=== PATIENT | female | born 1955 | race Caucasian/White ===

== ENCOUNTER 2018-05-06 05:34 | Outpatient (CLI) | payer BC ==
[~2018-05-06] VITALS: Ht 175.3 cm; Wt 95.3 kg
[2018-05-06] MEDS ORDERED: ALPR0.5T7 PO (13:23)
[2018-05-06] MEDS ORDERED: MTH/1CAP2 PO (13:23)
== END 2018-05-06 13:25 | disposition home or self-care (01) ==
LOC: PREOP 05:34
PROVIDERS: ATTEND Surgery
DX: Z01.818 Encounter for other preprocedural examination (principal)

== ENCOUNTER 2018-05-13 07:20 | Day surgery (SDC) | payer BC ==
[~2018-05-13] VITALS: Ht 175.3 cm; Wt 95.3 kg
[~2018-05-13 07:20] MED LIST: ALPR0.5T7 PO; MTH/1CAP2 PO
[2018-05-13] MEDS ORDERED: NS IV 500 ML 500 ML ONE (07:25)
--- OUTSIDE RECORDS SUMMARY | 2018-05-13 07:25 | XMS REPORT ---
Author Author [facility] Medical Staff Organization [facility] Address [address] [id number] Phone [phone] Care Team Providers Care Assistant Professor Of Art Name Role Phone WHITLEY NIELSEN, JACY PP [phone] JACY ARREAGA MD, PP [phone] Summary purpose TRANSITION OF CARE AUTO GENERATION Chief Complaint and Reason for Visit No authorized Reason for Visit (Admitting Diagnosis) is available for this visit. Problem list No authorized problems tracked for continuity of care are available for this visit. Encounters No authorized problems tracked for encounter diagnoses are available for this visit. Medications No medications recorded for this patient visit Allergies, adverse reactions, alerts Allergen Category Ingredient Status Reaction Severity Onset No Known Drug Allergy No known drug allergies No known drug allergies Confirmed or Verified Immunizations No immunizations recorded for this patient visit Relevant diagnostic tests and/or laboratory data No authorized results are available for this patient visit History of procedures No procedures recorded for this patient visit. Functional status No functional or cognitive status observations are available for this visit. Vital signs No authorized vital signs are available for this visit. Social history No Social History or smoking status observations were recorded for this visit. ( Unknown if ever smoked.) Treatment Plan No treatment plan text is available for this visit. Hospital discharge instructions No discharge instruction text is available for this visit.
--- OUTSIDE RECORDS SUMMARY | 2018-05-13 07:25 | XMS REPORT ---
Author Author [facility] Medical Staff Organization [facility] Address [address] [id number] Phone [phone] Summary purpose TRANSITION OF CARE AUTO GENERATION [...]
--- OUTSIDE RECORDS SUMMARY | 2018-05-13 07:25 | XMS REPORT ---
Author Author [facility] Ayi Laile [facility] Medical Staff Organization [facility] Address [address] [place] [id number] Phone [phone] Summary purpose TRANSITION OF CARE AUTO GENERATION [...] visit Relevant diagnostic tests and/or laboratory data RESULTS Radiology Results [id number] MRI T-SPINE W/O CONT PACs Image DATE OF EXAM: Nov 11 2015 MRI 0150-MRI T SPINE WO CONTRAST : RADIOLOGY REPORT DATE OF SERVICE: 11/11/15 HISTORY: Patient has mid back pain x3 months getting worse. MRI THORACIC SPINE WITHOUT CONTRAST 1344 HOURS Multiplanar multisequence study was performed. Vertebral bodies align normally except for mild 2 mm anterolisthesis of T2 on T3 which is likely degenerative. Signal intensity in vertebrae is normal with the exception of a few vertebrae having increased signal areas on both T1 and T2 weighted sequences compatible with benign hemangiomas. The interspaces are maintained. The intervertebral discs fail to show any disc protrusion or bulging. There is no spinal canal stenosis and the neural foramina are patent. Spinal cord has normal signal and appearance. IMPRESSION: Minimal degenerative anterolisthesis of T2 on T3. The study is otherwise negative for any significant findings. DO RAMEZ Briggs/ty 11/11/2015 14:10: / 11/11/2015 14:40:51 cc:Taylor Cash PA-C This document has been electronically Signed by: On: DATE OF EXAM: Nov 11 2015 MRI 0150-MRI T SPINE WO CONTRAST : RADIOLOGY REPORT DATE OF SERVICE: 11/11/15 HISTORY: Patient has mid back pain x3 months getting worse. MRI THORACIC SPINE WITHOUT CONTRAST 1344 HOURS Multiplanar multisequence study was performed. Vertebral bodies align normally except for mild 2 mm anterolisthesis of T2 on T3 which is likely degenerative. Signal intensity in vertebrae is normal with the exception of a few vertebrae having increased signal areas on both T1 and T2 weighted sequences compatible with benign hemangiomas. The interspaces are maintained. The intervertebral discs fail to show any disc protrusion or bulging. There is no spinal canal stenosis and the neural foramina are patent. Spinal cord has normal signal and appearance. IMPRESSION: Minimal degenerative anterolisthesis of T2 on T3. The study is otherwise negative for any significant findings. Shabana Collins DO /ty 11/11/2015 14:10:00 / 11/11/2015 14:40:51 cc:Taylor Cash PA-C This document has been electronically Signed by: SHABANA COLLINS DO On: Nov 11 20153:35P Result Amended on 2015-11-11 at 15:35:38. Previous status was [place]. History of procedures No procedures recorded for [...]
--- OUTSIDE RECORDS SUMMARY | 2018-05-13 07:25 | XMS REPORT ---
Author Author [facility] Medical Staff Organization [facility] Address [address] [place] [id number] Phone [phone] Summary purpose TRANSITION OF CARE AUTO GENERATION [...] tests and/or laboratory data RESULTS Radiology Results [id number] RIB XRAYS - UNILAT 3 VIEW PACs Image DATE OF EXAM: 2015 RAD 1308-RIB [id number] VIEW- RIGHT: RADIOLOGY REPORT DATE OF SERVICE: 10/18/15 HISTORY: Right upper back and right rib pain for 3 weeks RIGHT RIBS 3 VIEWS 1645 HOURS The ribs appear intact. No fractures are noted. There is no pneumothorax or pleural effusion. IMPRESSION: Negative right ribs. MD OCTAVIA Da Silva/ky10/19/2015 08:27:00 / 10/19/2015 08:51:18 cc:Al Cash PA-C This document has been electronically Signed by: On: DATE OF EXAM: 2015 RAD 1308-RIB [id number] VIEW- RIGHT: RADIOLOGY REPORT DATE OF SERVICE: 10/18/15 HISTORY: Right upper back and right rib pain for 3 weeks RIGHT RIBS 3 VIEWS 1645 HOURS The ribs appear intact. No fractures are noted. There is no pneumothorax or pleural effusion. IMPRESSION: Negative right ribs. MD OCTAVIA Da Silva/ty10/19/2015 08:27:00 / 10/19/2015 08:51:18 cc:Al Cash PA-C This document has been electronically Signed by: PETER SIERRA MD On: :P Result Amended on 2015-10-19 at 13:01:32. Previous status was [place]. Thoracic Spine - 3 View PACs Image DATE OF EXAM: 2015 RAD 0425-THORACIC SPINE-3 VIEW : RADIOLOGY REPORT DATE OF SERVICE: 10/18/15 HISTORY: Upper back pain for 3 weeks THORACIC SPINE 3 VIEWS 1645 HOURS There is mild wedging of several midthoracic vertebra, probably T6 and T7. There are diffuse degenerative changes with disc narrowing. Marginal osteophytes are present at multiple levels. The paraspinous soft tissues are normal. IMPRESSION: Diffuse degenerative thoracic disc changes. Mild chronic wedging of mid thoracic vertebra. MD OCTAVIA Da Silva/ty10/19/2015 08:23: / 10/19/2015 08:50:17 cc:Al Cash PA-C This document has been electronically Signed by: On: DATE OF EXAM: 2015 RAD 0425-THORACIC SPINE-3 VIEW : RADIOLOGY REPORT DATE OF SERVICE: 10/18/15 HISTORY: Upper back pain for 3 weeks THORACIC SPINE 3 VIEWS 1645 HOURS There is mild wedging of several midthoracic vertebra, probably T6 and T7. There are diffuse degenerative changes with disc narrowing. Marginal osteophytes are present at multiple levels. The paraspinous soft tissues are normal. IMPRESSION: Diffuse degenerative thoracic disc changes. Mild chronic wedging of mid thoracic vertebra. MD OCTAVIA Da Silva/ty10/19/2015 08:23: / 10/19/2015 08:50:17 cc:Al Cash PA-C This document has been electronically Signed by: PETER SIERRA MD On: :P Result Amended on 2015-10-19 at 13:01:30. Previous status was [place]. History of procedures Procedure Code Code Type Description Date Performed Performing Physician 45653 CPT-4 X-RAY EXAM OF THORACIC SPINE 10-18-2015 AL CASH 87005 CPT-4 X-RAY EXAM OF RIBS/CHEST 10-18-2015 AL CASH Functional status No functional or cognitive status [...]
--- OUTSIDE RECORDS SUMMARY | 2018-05-13 07:25 | XMS REPORT ---
Author Author [facility] Medical Staff Organization [facility] Address [address] [place] [id number] Phone [phone] Summary purpose TRANSITION OF CARE AUTO GENERATION [...] tests and/or laboratory data RESULTS Radiology Results [id number] MRI T-SPINE W/O CONT PACs Image DATE [...] RAMEZ Briggs/ty 11/11/2015 14:10: / 11/11/2015 14:40:51 cc:Al Cash PA-C This document has been [...] DO /ty 11/11/2015 14:10:00 / 11/11/2015 14:40:51 cc:Al Cash PA-C This document has been electronically Signed by: SHABANA COLLINS DO On: Nov 11 20153:35P Result Amended on 2015-11-11 at 15:35:38. Previous status was [place]. History of procedures Procedure Code Code Type Description Date Performed Performing Physician 36114 CPT-4 MRI CHEST SPINE W/O DYE 11-11-2015 AL CASH Functional status No functional or [...]
--- OUTSIDE RECORDS SUMMARY | 2018-05-13 07:25 | XMS REPORT ---
Author Author [facility] Medical Staff Organization [facility] Address [address] [id number] Phone [phone] Care Team Providers Care Bible Reader Name Role Phone WHITLEY NIELSEN, JACY PP [phone] JACY ARREAGA MD, PP [phone] Summary purpose TRANSITION OF CARE AUTO GENERATION Chief Complaint and Reason for Visit Admit Diagnosis 1 OT SCREEN MAMMOGRAM Problem list No authorized problems tracked for [...] tests and/or laboratory data RESULTS Radiology Results [id number] Bilateral Screen Digital Mammo PACs Image DATE OF EXAM: Mar 12 2015 [facility] 0845-BILAT SCREEN DIG MAMMO : RADIOLOGY REPORT DATE OF SERVICE:03/12/15 HISTORY: Screening for possible malignant neoplasm BILATERAL SCREENING DIGITAL MAMMOGRAPHY WITH iCAD SecondLook 7.2 - H+ 1530 HOURS Breast parenchyma shows scattered fibroglandular density.No mass, grouped calculi or architectural distortion is seen. IMPRESSION:ACR BIRADS I - negative study DO RAMEZ Briggs/emily 03/15/2015 18:42:00 / 03/15/2015 22:12:07 cc:Dr. Jacy Arreaga This document has been electronically Signed by: On: DATE OF EXAM: Mar 12 2015 [facility] 0845-BILAT SCREEN DIG MAMMO : RADIOLOGY REPORT DATE OF SERVICE:03/12/15 HISTORY: Screening for possible malignant neoplasm BILATERAL SCREENING DIGITAL MAMMOGRAPHY WITH iCAD SecondLook 7.2 - H+ 1530 HOURS Breast parenchyma shows scattered fibroglandular density.No mass, grouped calculi or architectural distortion is seen. IMPRESSION:ACR BIRADS I - negative study DO RAMEZ Briggs/pb 03/15/2015 18:42:00 / 03/15/2015 22:12:07 cc:Dr. Jacy Arreaga This document has been electronically Signed by: SHABANA COLLINS DO On: Mar 16 20153:59P Result Amended on 2015-03-16 at 15:59:45. Previous status was [place]. History of procedures Procedure Code Code Type Description Date Performed Performing Physician 97367 CPT-4 MAMMOGRAM, SCREENING 03-12-2015 JACY ARREAGA 12801 CPT-4 COMP SCREEN MAMMOGRAM ADD-ON 03-12-2015 JACY ARREAGA Functional status No functional or cognitive status [...]
--- OUTSIDE RECORDS SUMMARY | 2018-05-13 07:26 | XMS REPORT ---
Author Author PETER SAMANIEGO [facility] Address [address] [place], [place] [id number] Care Team Providers Care Mammographer Name Role Phone PETER SAMANIEGO PCP Allergies and Adverse Reactions Name Reaction Notes No known drug allergy Plan of Treatment Planned Activity Comments Planned Date Planned Time Plan/Goal CBC W/ AUTO DIFF (RFLX MAN DIFF IF IND). 09/07/2017 12:00 AM MAMMOGRAPHY BILATERAL DX DIGITAL 04/09/2018 12:00 AM Medications Active Name Start Date Estimated Completion Date SIG Comments prednisone 20 mg oral tablet 08/23/2017 4 x 2 days, 3 x 2 days, 2 x 2 days 1 x 2 days [place] 10-325 mg oral tablet 09/05/2017 take 1 tablet by oral route every 6 hours as needed for pain cyclobenzaprine 10 mg oral tablet 09/05/2017 take 1 tablet (10 mg) by oral route 3 times per day Name Start Date Expiration Date SIG Comments Xanax 0.5 mg oral tablet 10/05/2017 12/04/2017 1/2 to 1 twice daily as needed for anxiety must last 30 days lansoprazole 30 mg oral capsule,delayed release(DR/EC) 02/27/2018 03/29/2018 take 1 capsule (30 mg) by oral route BID for one week the tkae once daily daily before a meal . Problem List Description Status Onset Acute midline low back pain with left-sided sciatica Active 08/22/2017 History of renal calculi Active 08/22/2017 Renal cyst Active 08/22/2017 LOLIS (generalized anxiety disorder) Active 10/06/2017 Vital Signs Date Time BP-Sys(mm[Hg] BP-Skylar(mm[Hg]) HR(bpm) RR(rpm) Temp WT HT HC BMI BSA BMI Percentile O2 Sat(%) 03/01/2018 7:21:00 AM 106 mmHg 72 mmHg 82 bpm 18 rpm 98.1 F 220 lbs 69 in 32.488 kg/m 2.2041 m 98 % 12/12/2017 8:25:00 AM 160 mmHg 90 mmHg 80 bpm 16 rpm 98.1 F 215 lbs 69 in 31.75 kg/m2 2.18 m2 98 % 10/05/2017 1:28:00 PM 124 mmHg 82 mmHg 86 bpm 18 rpm 98.2 F 215 lbs 99 % 09/11/2017 4:15:00 PM 132 mmHg 86 mmHg 98 bpm 18 rpm 99.1 F 219 lbs 70 in 31.4229 kg/m 2.215 m 100 % 08/20/2017 4:32:00 PM 148 mmHg 100 mmHg 106 bpm 18 rpm 98 F 219 lbs 69.5 in 31.88 kg/m2 2.21 m2 98 % Social History Name Description Comments Uses seatbelts Alcohol Current some day Tobacco Never smoker History of Procedures Date Ordered Description Order Status 08/20/2017 12:00 AM MRI LUMBAR SPINE W/O DYE Returned 08/20/2017 12:00 AM THER/PROPH/DIAG INJ SC/IM Reviewed 08/20/2017 12:00 AM Decadron 8mg Injection Reviewed 08/20/2017 12:00 AM Depo-Medrol 80mg Injection Reviewed 08/27/2017 12:00 AM INJECT SPINE LUMBAR/SACRAL Returned 09/07/2017 12:00 AM ASSAY BLOOD CARBON DIOXIDE Reviewed 09/07/2017 12:00 AM ASSAY OF BLOOD CHLORIDE Reviewed 09/07/2017 12:00 AM ASSAY OF SERUM POTASSIUM Reviewed 09/07/2017 12:00 AM ASSAY OF SERUM SODIUM Reviewed 09/07/2017 12:00 AM ASSAY OF UREA NITROGEN Reviewed 09/07/2017 12:00 AM CHEST X-RAY 2VW FRONTAL&LATL Reviewed 09/07/2017 12:00 AM ELECTROCARDIOGRAM TRACING Returned 09/11/2017 12:00 AM THER/PROPH/DIAG INJ SC/IM Reviewed 09/11/2017 12:00 AM Decadron 8mg Injection Reviewed 09/11/2017 12:00 AM Toradol 60 Mg Injection Reviewed 03/01/2018 12:00 AM THER/PROPH/DIAG INJ SC/IM Reviewed 03/01/2018 12:00 AM Decadron 8mg Injection Reviewed 03/01/2018 12:00 AM Depo-Medrol 80mg Injection Reviewed Results Summary Not available. History Of Immunizations Not available. History of Past Illness Name Date of Onset Comments Kidney Stones Acute midline low back pain with left-sided sciatica 08/22/2017 History of renal calculi 08/22/2017 Renal cyst 08/22/2017 LOLIS (generalized anxiety disorder) 10/06/2017 Low back pain Aug 20 2017 4:35PM Lumbago with sciatica, left side Aug 20 2017 4:33PM Pain management Aug 20 2017 4:33PM History of renal calculi Aug 20 2017 4:33PM Bilateral Renal cyst Stable Aug 20 2017 4:33PM Renal calculus, left Aug 20 2017 4:33PM Spondylosis Aug 27 2017 1:50PM Back pain Aug 27 2017 1:50PM Preoperative examination Sep 07 2017 12:30PM Encounter for pre-operative examination Stable Sep 11 2017 4:17PM Mild Chronic LOLIS (generalized anxiety disorder) Stable Oct 05 2017 1:29PM Medication management Oct 05 2017 1:29PM GERD without esophagitis Dec 12 2017 8:28AM LOLIS (generalized anxiety disorder) Dec 12 2017 8:28AM Medication management Dec 12 2017 8:28AM Osteoarthrosis, generalized, multiple sites Mar 01 2018 7:23AM Fatigue, unspecified type Mar 01 2018 7:23AM Seasonal allergies Mar 01 2018 7:23AM Breast cancer screening Apr 09 2018 3:10PM Payers Insurance Name Company Name Plan Name Plan Number Policy Number Policy Group Number [id number] History of Encounters Visit Date Visit Type Provider 03/01/2018 Office visit PETER NICKERSON 12/12/2017 Office visit PETER NICKERSON 10/05/2017 Office visit PETER NICKERSON 09/11/2017 Office visit PETER NICKERSON 08/20/2017 Office visit PETER NICKERSON
--- OUTSIDE RECORDS SUMMARY | 2018-05-13 07:26 | XMS REPORT ---
Author Author PETER SAMANIEGO [facility] Address [address] [place], [place] [phone] Care Team Providers Care Web Content & Social Media Manager Name Role Phone PETER SAMANIEGO PCP Allergies and Adverse Reactions Name Reaction Notes No known drug allergy Plan of Treatment Planned Activity Comments Planned Date Planned Time Plan/Goal CBC W/ AUTO DIFF (RFLX MAN DIFF IF IND). 09/07/2017 12:00 AM Medications Active Name Start Date Estimated Completion Date SIG Comments prednisone 20 mg oral tablet 08/23/2017 4 x 2 days, 3 x 2 days, 2 x 2 days 1 x 2 days [place] 10-325 mg oral tablet 09/05/2017 take 1 tablet by oral route every 6 hours as needed for pain cyclobenzaprine 10 mg oral tablet 09/05/2017 take 1 tablet (10 mg) by oral route 3 times per day Xanax 0.5 mg oral tablet 10/05/2017 12/04/2017 1/2 to 1 twice daily as needed for anxiety must last 30 days Problem List Description Status Onset Acute midline low back pain with left-sided sciatica Active 08/22/2017 History of renal calculi Active 08/22/2017 Renal cyst Active 08/22/2017 LOLIS (generalized anxiety disorder) Active 10/06/2017 Vital Signs Date Time BP-Sys(mm[Hg] BP-Skylar(mm[Hg]) HR(bpm) RR(rpm) Temp WT HT HC BMI BSA BMI Percentile O2 Sat(%) 10/05/2017 1:28:00 PM 124 mmHg 82 mmHg 86 bpm 18 rpm 98.2 F 215 lbs 99 % 09/11/2017 4:15:00 PM 132 mmHg 86 mmHg 98 bpm 18 rpm 99.1 F 219 lbs 70 in 31.42 kg/m2 2.21 m2 100 % 08/20/2017 4:32:00 PM 148 mmHg 100 mmHg 106 bpm 18 rpm 98 F 219 lbs 69.5 in 31.8767 kg/m 2.2071 m 98 % Social History Name Description Comments [...] 12:00 AM Toradol 60 Mg Injection Reviewed Results Summary Not available. History [...] 1:29PM Medication management Oct 05 2017 1:29PM Payers Insurance Name Company Name Plan Name Plan Number Policy Number Policy Group Number [id number] History of Encounters Visit Date Visit Type Provider 10/05/2017 Office visit PETER NICKERSON 09/11/2017 Office visit PETER NICKERSON 08/20/2017 Office visit PETER NICKERSON
--- OUTSIDE RECORDS SUMMARY | 2018-05-13 07:26 | XMS REPORT ---
Author Author PETER SAMANIEGO [facility] Address [address] [place], [place] [phone] Care Team Providers Care Warehouse Order Selector Name Role Phone PETER SAMANIEGO PCP Allergies [...] x 2 days 1 x 2 days [place] 10-325 mg oral tablet 09/05/2017 take 1 tablet by oral route every 6 hours as needed for pain cyclobenzaprine 10 mg oral tablet 09/05/2017 take 1 tablet (10 mg) by oral route 3 times per day lansoprazole 30 mg oral capsule,delayed release(DR/EC) 02/27/2018 03/29/2018 take 1 capsule (30 mg) by oral route BID for one week the tkae once daily daily before a meal . Name Start Date Expiration Date SIG Comments [...] 7:23AM Seasonal allergies Mar 01 2018 7:23AM Payers Insurance Name Company Name Plan Name Plan Number Policy Number Policy Group Number [id number]/A History of Encounters Visit Date Visit Type Provider 03/01/2018 Office visit PETER NICKERSON 12/12/2017 Office visit PETER NICKERSON 10/05/2017 Office visit PETER NICKERSON 09/11/2017 Office visit PETER NICKERSON 08/20/2017 Office visit PETER NICKERSON
--- OUTSIDE RECORDS SUMMARY | 2018-05-13 07:26 | XMS REPORT ---
Author PETER Hernandez [facility] Address [address] [facility] [address] [place], [place] [phone] Care Team Providers Care Project Facilitator Name Role Phone PETER SAMANIEGO PCP Allergies and Adverse Reactions Name Reaction Notes No known drug allergy Plan of Treatment Not available. Medications Active Name Start Date Estimated Completion Date SIG Comments cyclobenzaprine 10 mg oral tablet 08/20/2017 take 1 tablet (10 mg) by oral route 3 times per day Xanax 0.5 mg oral tablet 08/20/2017 09/19/2017 1/2 to 1 twice daily as needed for anxiety must last 30 days prednisone 20 mg oral tablet 08/23/2017 4 x 2 days, 3 x 2 days, 2 x 2 days 1 x 2 days [place] 10-325 mg oral tablet 08/28/2017 take 1-2 tablets by oral route every 4 to 6 hours Problem List Description Status Onset Acute midline low back pain with left-sided sciatica Active 08/22/2017 History of renal calculi Active 08/22/2017 Renal cyst Active 08/22/2017 Vital Signs Date Time BP-Sys(mm[Hg] BP-Skylar(mm[Hg]) HR(bpm) RR(rpm) Temp WT HT HC BMI BSA BMI Percentile O2 Sat(%) 08/20/2017 4:32:00 PM 148 mmHg 100 mmHg [...] 08/20/2017 12:00 AM Depo-Medrol 80mg Injection Reviewed Results Summary Not available. History Of Immunizations Not available. History of Past Illness Name Date of Onset Comments Kidney Stones Acute midline low back pain with left-sided sciatica 08/22/2017 History of renal calculi 08/22/2017 Renal cyst 08/22/2017 Low back pain Aug 20 2017 4:35PM Lumbago with sciatica, left side Aug 20 2017 4:33PM Pain management Aug 20 2017 4:33PM History of renal calculi Aug 20 2017 4:33PM Bilateral Renal cyst Stable Aug 20 2017 4:33PM Renal calculus, left Aug 20 2017 4:33PM Spondylosis Aug 27 2017 1:50PM Back pain Aug 27 2017 1:50PM Payers Insurance Name Company Name Plan Name Plan Number Policy Number Policy Group Number [id number]A History of Encounters Visit Date Visit Type Provider 08/20/2017 Office visit PETER NICKERSON
--- OUTSIDE RECORDS SUMMARY | 2018-05-13 07:26 | XMS REPORT ---
Author Author PETER SAMANIEGO [facility] Address [address] [facility] [address] [place], [place] [phone] Care Team Providers Care Cycle Counter Name Role Phone PETER SAMANIEGO PCP Allergies and Adverse Reactions Name Reaction Notes No known drug allergy Plan of Treatment Planned Activity Comments Planned Date Planned Time Plan/Goal MRI LUMBAR SPINE W/O CONTRAST 08/20/2017 12:00 AM Medications Active Name Start Date Estimated Completion Date SIG Comments [place] 10-325 mg oral tablet 08/20/2017 take 1-2 tablets by oral route every [...] Ordered Description Order Status 08/20/2017 12:00 AM THER/PROPH/DIAG INJ SC/IM Reviewed [...] Renal calculus, left Aug 20 2017 4:33PM Payers Insurance Name Company Name Plan Name Plan Number Policy Number Policy Group Number Start Date [facility] [id number] N/A History of Encounters Visit Date Visit Type Provider 08/20/2017 Office visit PETER NICKERSON
--- OUTSIDE RECORDS SUMMARY | 2018-05-13 07:26 | XMS REPORT ---
Author Author PETER SAMANIEGO [facility] Address [address] [facility] [address] [place], [place] [phone] Care Team Providers Care Drama Teacher Name Role Phone PETER SAMANIEGO PCP Allergies and Adverse Reactions Name Reaction Notes No known drug allergy Plan of Treatment Planned Activity Comments Planned Date Planned Time Plan/Goal CBC W/ AUTO DIFF (RFLX MAN DIFF IF IND). 09/07/2017 12:00 AM Chem 7 panel (Na, K, Cl, CO2, BUN, random glucose, Ca) 09/07/2017 12:00 AM Chem 7 panel (Na, K, Cl, CO2, BUN, random glucose, Ca) 09/07/2017 12:00 AM Chem 7 panel (Na, K, Cl, CO2, BUN, random glucose, Ca) 09/07/2017 12:00 AM Chem 7 panel (Na, K, Cl, CO2, BUN, random glucose, Ca) 09/07/2017 12:00 AM Chem 7 panel (Na, K, Cl, CO2, BUN, random glucose, Ca) 09/07/2017 12:00 AM Chest PA and Lateral - Main 09/07/2017 12:00 AM EKG. 09/07/2017 12:00 AM Medications Active Name Start Date Estimated Completion Date SIG Comments Xanax 0.5 mg oral tablet 08/20/2017 09/19/2017 1/2 to 1 twice daily as needed for anxiety must last 30 days prednisone 20 mg oral tablet 08/23/2017 4 x 2 days, 3 x 2 days, 2 x 2 days 1 x 2 days [place] 10-325 mg oral tablet 09/05/2017 take 1 tablet by oral route every 6 hours as needed for pain cyclobenzaprine 10 mg oral tablet 09/05/2017 take 1 tablet (10 mg) by oral route 3 times per day Problem List Description Status Onset Acute midline [...] 08/27/2017 12:00 AM INJECT SPINE LUMBAR/SACRAL Returned Results Summary Not available. History Of Immunizations [...] 1:50PM Preoperative examination Sep 07 2017 12:30PM Payers Insurance Name Company Name Plan Name Plan Number Policy Number Policy Group Number Start Date [facility] [id number] N/A History of Encounters Visit Date Visit Type Provider 08/20/2017 Office visit PETER NICKERSON
--- OUTSIDE RECORDS SUMMARY | 2018-05-13 07:26 | XMS REPORT ---
Author PETER Hernandez [facility] Address [address] [place], [place] [id number] Care Team Providers Care [place]er Name Role Phone PETER SAMANIEGO PCP Allergies and Adverse Reactions Name Reaction Notes No known drug allergy Plan of Treatment Not available. Medications Active Name Start Date Estimated Completion Date SIG Comments [place] 10-325 mg oral tablet 08/20/2017 take 1-2 tablets by oral route every 4 to 6 hours cyclobenzaprine 10 mg oral tablet 08/20/2017 take 1 tablet (10 mg) by oral route 3 times per day Xanax 0.5 mg oral tablet 08/20/2017 09/19/2017 1/2 to 1 twice daily as needed for anxiety must last 30 days prednisone 20 mg oral tablet 08/23/2017 4 x 2 days, 3 x 2 days, 2 x 2 days 1 x 2 days Problem List Description Status Onset Acute [...] Policy Number Policy Group [id number]A History of Encounters Visit Date Visit Type Provider 08/20/2017 Office visit PETER NICKERSON
--- OUTSIDE RECORDS SUMMARY | 2018-05-13 07:27 | XMS REPORT | Clinical Summary ---
Author Author Admin, [facility] Organization [facility] Address Unknown Phone Unavailable Allergies, Adverse Reactions, Alerts Allergy Name Reaction Description Start Date Severity Status Provider No Known Allergies Norma Elder Conditions or Problems Problem Name Problem Code Onset Date Status Entry Date Provider Comment Standard Description Annotate HYPERTENSION 401.9 Active Sharon Valdez NEWSPAPER CORRESPONDENT Unspecified essential hypertension TINEA CRURIS 110.3 Active Sharon Valdez NEWSPAPER CORRESPONDENT Dermatophytosis of groin and perianal area SUPRAPUBIC PAIN 789.09 Active Sharon Valdez NEWSPAPER CORRESPONDENT Abdominal pain, other specified site; multiple sites VAGINAL PRURITUS 698.1 Active Sharon Valdez APRN Pruritus of genital organs Dysuria Active Polina Nix MD Dysuria Interstitial Cystitis Active Polina Nix MD Chronic interstitial cystitis Kidney stone 592.0 Active Cami Mayer CLINICAL ASSOCIATE Calculus of kidney Flank Pain Active Polina Nix MD Abdominal pain, unspecified site Medication List Medication Instructions Start Date Stop Date Generic Name NDC Status Provider Patient Instruction PRELIEF 340 (65-50) MG (CA-P) ORAL TABLET 2 tabs by mouth three times daily as needed. CALCIUM GLYCEROPHOSPHATE 87150103359 Active Norma Elder Active ALPRAZOLAM 0.5 MG ORAL TABLET 1/2 to 1 tab by mouth twice daily as needed ALPRAZOLAM 57038949346 Active Norma Elder Active FLUCONAZOLE 100 MG ORAL TABLET 1 by mouth once a week. FLUCONAZOLE 58678328773 No Longer Active Norma Elder Active ESTRADIOL 10 % CREAM Apply 0.25mg vaginally. ESTRADIOL 74171165868 No Longer Active Norma Osuna Active URO-MP 118 MG ORAL CAPSULE 1 cap by mouth every 6 hours as needed for bladder pain [facility]-HY[facility]-M BL-NA PHOS-PH [facility] 00270434836 Active Norma Enrrique Active ALPRAZOLAM 0.25 MG ORAL TABLET Take 1 tablet TID as needed for anxiety 03/04 ALPRAZOLAM 17646545007 No Longer Active Polina Nix MD Active ADULT ASPIRIN EC LOW STRENGTH 81 MG ORAL TABLET DELAYED RELEASE Take 1 tablet daily ASPIRIN 28760948363 No Longer Active Polina Nix MD Active VISION FORMULA TABS 1 tablet daily MULTIPLE VITAMINS- MINERALS 86027461030 No Longer Active Polina Nix MD Active NYSTATIN 415397 UNIT/GM EXTERNAL POWDER Apply to affected areas BID-TID 03/04 NYSTATIN 81272559042 No Longer Active Polina Nix MD Active LEXAPRO 10 MG ORAL TABLET 1 tablet daily ESCITALOPRAM OXALATE 10865218209 No Longer Active Polina Nix MD Active LISINOPRIL 10 MG ORAL TABLET Take 1 tablet daily LISINOPRIL 18705918583 No Longer Active Polina Nix MD Active DIFLUCAN 100 MG ORAL TABLET 1 tablet by mouth daily FLUCONAZOLE 97178005474 No Longer Active Sharon Valdez APRN Active LISINOPRIL 10 MG ORAL TABLET Take 1 tablet daily LISINOPRIL 10 MG ORAL TABLET 837513 LISINOPRIL Inactive LEXAPRO 10 MG ORAL TABLET 1 tablet daily LEXAPRO 10 MG ORAL TABLET 471190 ESCITALOPRAM OXALATE Inactive NYSTATIN 257437 UNIT/GM EXTERNAL POWDER Apply to affected areas BID-TID 03/04 NYSTATIN 140569 UNIT/GM EXTERNAL POWDER 289002 NYSTATIN Inactive VISION FORMULA TABS 1 tablet daily VISION FORMULA TABS MULTIPLE VITAMINS-MINERALS Inactive ADULT ASPIRIN EC LOW STRENGTH 81 MG ORAL TABLET DELAYED RELEASE Take 1 tablet daily ADULT ASPIRIN EC LOW STRENGTH 81 MG ORAL TABLET DELAYED RELEASE 544258 ASPIRIN Inactive ALPRAZOLAM 0.25 MG ORAL TABLET Take 1 tablet TID as needed for anxiety 03/04 ALPRAZOLAM 0.25 MG ORAL TABLET 296854 ALPRAZOLAM Inactive ESTRADIOL 10 % CREAM Apply 0.25mg vaginally. ESTRADIOL 10 % CREAM 66356719868 ESTRADIOL Inactive FLUCONAZOLE 100 MG ORAL TABLET 1 by mouth once a week. FLUCONAZOLE 100 MG ORAL TABLET 952800 FLUCONAZOLE Inactive DIFLUCAN 100 MG ORAL TABLET 1 tablet by mouth daily DIFLUCAN 100 MG ORAL TABLET 999495 FLUCONAZOLE Inactive Advance Directives Directive Description Start Date PERMISSION TO SHARE Vital Signs Date Name Value Unit Range Description blood pressure, diastolic, repeated by physician 86 BP farah blood pressure, diastolic 86 mm[Hg] BP farah blood pressure, systolic, repeated by physician 140 BP sys blood pressure, systolic 140 mm[Hg] BP sys height E&M 69 [in_us] Bdy height pulse rate E&M 80 /min Heart rate temperature E&M 97.2 [degF] Body temperature weight E&M 221 [lb_av] Weight Measured blood pressure, diastolic 83 mm[Hg] BP farah blood pressure, systolic 152 mm[Hg] BP sys pulse rate E&M 78 /min Heart rate temperature E&M 98.1 [degF] Body temperature weight E&M 219 [lb_av] Weight Measured blood pressure, diastolic 90 mm[Hg] BP farah blood pressure, systolic 140 mm[Hg] BP sys pulse rate E&M 66 /min Heart rate temperature E&M 97.5 [degF] Body temperature weight E&M 220 [lb_av] Weight Measured Diagnostic Results Date Name Value Unit Range Description Lab Report: UADIP W/MICRO, AUTO - Chemistry protein, total urine random Negative mg/dL Negative RBC, urine, dipstick Negative Negative Lab Report: UADIP W/MICRO, AUTO - Urinalysis urobilinogen, urine, semiquantitative (dipstick) 0.2 E.U./dL Normal leukocyte esterase, urine, by dipstick Negative Negative nitrite, urine, semiquantitative Negative Negative glucose, urine, semiquantitative Negative Negative ketones, urine, by test strip Negative Negative bilirubin, urine Negative Negative urine color Yellow Colorless;Lightyellow;Straw;Yellow appearance, urine Slightly Cloudy Clear specific gravity, urine 1.025 1.000-1.030 pH, urine, semiquantitative 5.5 5.0-8.5 Office Visit: Follow up bladder spasms - Chemistry RBC, urine, dipstick negative protein, total urine random trace mg/dL Office Visit: Follow up bladder spasms - Urinalysis ketones, urine, by test strip negative bilirubin, urine negative glucose, urine, semiquantitative negative nitrite, urine, semiquantitative negative pH, urine, semiquantitative 6.5 specific gravity, urine 1.025 urinalysis, routine Clean Catch leukocyte esterase, urine, by dipstick negative appearance, urine clear urine color yellow urobilinogen, urine, semiquantitative (dipstick) negative protein, urine, semiquantitative (dipstick) negative Office Visit: Possible kidney stone - Chemistry protein, total urine random negative mg/dL RBC, urine, dipstick negative Office Visit: Possible kidney stone - Urinalysis ketones, urine, by test strip negative bilirubin, urine negative glucose, urine, semiquantitative negative urinalysis, routine Clean Catch urine color straw appearance, urine clear leukocyte esterase, urine, by dipstick negative nitrite, urine, semiquantitative negative urobilinogen, urine, semiquantitative (dipstick) negative protein, urine, semiquantitative (dipstick) negative pH, urine, semiquantitative 7 specific gravity, urine 1.015 Encounters Code Encounter Date Provider Facility CPT-67598 Level 3 Est. Patient 21:06:37 CDT Polina Nix MD [facility] CPT-01414 Level 3 Est. Patient 11:08:28 INTERNAL CONTROL CONSULTANT Polina Nix MD [facility] CPT-67558 Level 3 New Patient 11:08:12 INTERNAL CONTROL CONSULTANT Polina Nix MD [facility] CPT-19772 Level 3 Est. Patient 16:08:46 INTERNAL CONTROL CONSULTANT Polina Nix MD [facility] CPT-70915 Level 3 New Patient 23:35:59 CDT Polina Nix MD [facility] [place] CPT-79902 Level 3 Est. Patient 14:21:37 CDT Sharon Valdez APRN [facility] -[facility] Procedures Code Procedure Name Date Entry Date Standard Description CPT-59558 Bladder Instillation 12:08:18 INTERNAL CONTROL CONSULTANT CPT-08154 Bladder Instillation 11:46:23 INTERNAL CONTROL CONSULTANT CPT-69765 Abdomen, 1 view 09:10:33 INTERNAL CONTROL CONSULTANT CPT-23555 UA Auto Dip only - LAB USE ONLY 17:23:43 CDT
--- OUTSIDE RECORDS SUMMARY | 2018-05-13 07:27 | XMS REPORT | Clinical Summary ---
Author Author Admin, [facility] Organization [facility] Address Unknown Phone Unavailable Allergies, Adverse Reactions, Alerts Allergy Name Reaction Description Start Date Severity Status Provider No Known Allergies Norma Elder Conditions or Problems Problem Name Problem Code Onset Date Status Entry Date Provider Comment Standard Description Annotate HYPERTENSION 401.9 Active Sharon Valdez BATCH MIXER OPERATOR Unspecified essential hypertension TINEA CRURIS 110.3 Active Sharon Valdez BATCH MIXER OPERATOR Dermatophytosis of groin and perianal area SUPRAPUBIC PAIN 789.09 Active Sharon Valdez BATCH MIXER OPERATOR Abdominal pain, other specified site; multiple sites VAGINAL PRURITUS 698.1 Active Sharon Valdez APRN Pruritus of genital organs Dysuria Active Polina Nix MD Dysuria Interstitial Cystitis Active Polina Nix MD Chronic interstitial cystitis Kidney stone 592.0 Active Cami Myaer TRIMMING INSPECTOR Calculus of kidney Flank Pain Active Polina Nix MD Abdominal pain, unspecified site Medication List Medication Instructions Start Date Stop Date Generic Name NDC Status Provider Patient Instruction PRELIEF 340 (65-50) MG (CA-P) ORAL TABLET 2 tabs by mouth three times daily as needed. CALCIUM GLYCEROPHOSPHATE 84451007035 Active Norma Elder Active ALPRAZOLAM 0.5 MG ORAL TABLET 1/2 to 1 tab by mouth twice daily as needed ALPRAZOLAM 03290238278 Active Norma Elder Active FLUCONAZOLE 100 MG ORAL TABLET 1 by mouth once a week. FLUCONAZOLE 71033007882 No Longer Active Norma Elder Active ESTRADIOL 10 % CREAM Apply 0.25mg vaginally. ESTRADIOL 01499300234 No Longer Active Norma Osuna Active URO-MP 118 MG ORAL CAPSULE 1 cap by mouth every 6 hours as needed for bladder pain [facility] BL-NA PHOS-PH [facility] 75218279322 Active Norma Enrrique Active ALPRAZOLAM 0.25 MG ORAL TABLET Take 1 tablet TID as needed for anxiety 03/04 ALPRAZOLAM 55025978994 No Longer Active Polina Nix MD Active ADULT ASPIRIN EC LOW STRENGTH 81 MG ORAL TABLET DELAYED RELEASE Take 1 tablet daily ASPIRIN 95884232745 No Longer Active Polina Nix MD Active VISION FORMULA TABS 1 tablet daily MULTIPLE VITAMINS- MINERALS 84493680005 No Longer Active Polina Nix MD Active NYSTATIN 432873 UNIT/GM EXTERNAL POWDER Apply to affected areas BID-TID 03/04 NYSTATIN 22055180263 No Longer Active Polina Nix MD Active LEXAPRO 10 MG ORAL TABLET 1 tablet daily ESCITALOPRAM OXALATE 71129615766 No Longer Active Polina Nix MD Active LISINOPRIL 10 MG ORAL TABLET Take 1 tablet daily LISINOPRIL 16895931669 No Longer Active Polina Nix MD Active DIFLUCAN 100 MG ORAL TABLET 1 tablet by mouth daily FLUCONAZOLE 36747984347 No Longer Active Sharon Valdez APRN Active LISINOPRIL 10 MG ORAL TABLET Take 1 tablet daily LISINOPRIL 10 MG ORAL TABLET 312152 LISINOPRIL Inactive LEXAPRO 10 MG ORAL TABLET 1 tablet daily LEXAPRO 10 MG ORAL TABLET 121585 ESCITALOPRAM OXALATE Inactive NYSTATIN 556598 UNIT/GM EXTERNAL POWDER Apply to affected areas BID-TID 03/04 NYSTATIN 676218 UNIT/GM EXTERNAL POWDER 600037 NYSTATIN Inactive VISION FORMULA TABS 1 tablet daily VISION FORMULA TABS MULTIPLE VITAMINS-MINERALS Inactive ADULT ASPIRIN EC LOW STRENGTH 81 MG ORAL TABLET DELAYED RELEASE Take 1 tablet daily ADULT ASPIRIN EC LOW STRENGTH 81 MG ORAL TABLET DELAYED RELEASE 674728 ASPIRIN Inactive ALPRAZOLAM 0.25 MG ORAL TABLET Take 1 tablet TID as needed for anxiety 03/04 ALPRAZOLAM 0.25 MG ORAL TABLET 210568 ALPRAZOLAM Inactive ESTRADIOL 10 % CREAM Apply 0.25mg vaginally. ESTRADIOL 10 % CREAM 29564431390 ESTRADIOL Inactive FLUCONAZOLE 100 MG ORAL TABLET 1 by mouth once a week. FLUCONAZOLE 100 MG ORAL TABLET 472811 FLUCONAZOLE Inactive DIFLUCAN 100 MG ORAL TABLET 1 tablet by mouth daily DIFLUCAN 100 MG ORAL TABLET 501592 FLUCONAZOLE Inactive Advance Directives Directive Description Start [...] Visit: Follow up bladder spasms - Urinalysis pH, urine, semiquantitative 6.5 specific gravity, urine 1.025 urinalysis, routine Clean Catch ketones, urine, by test strip negative bilirubin, urine negative glucose, urine, semiquantitative negative urine color yellow appearance, urine clear leukocyte esterase, urine, by dipstick negative nitrite, urine, semiquantitative negative urobilinogen, urine, semiquantitative (dipstick) negative protein, urine, semiquantitative (dipstick) negative Office Visit: Possible kidney stone - Chemistry RBC, urine, dipstick negative protein, total urine random negative mg/dL Office Visit: Possible kidney stone - Urinalysis pH, urine, semiquantitative 7 specific gravity, urine 1.015 ketones, urine, by test strip negative bilirubin, urine negative glucose, urine, semiquantitative negative urinalysis, routine Clean Catch urine color straw appearance, urine clear leukocyte esterase, urine, by dipstick negative nitrite, urine, semiquantitative negative urobilinogen, urine, semiquantitative (dipstick) negative protein, urine, semiquantitative (dipstick) negative Encounters Code Encounter Date Provider Facility CPT-90088 Level 3 Est. Patient 21:06:37 CDT Polina Nix MD [facility] CPT-98696 Level 3 Est. Patient 11:08:28 DJANGO DEVELOPER Polina Nix MD [facility] CPT-51168 Level 3 New Patient 11:08:12 DJANGO DEVELOPER Polina Nix MD [facility] CPT-13385 Level 3 Est. Patient 16:08:46 DJANGO DEVELOPER Polina Nix MD [facility] CPT-43357 Level 3 New Patient 23:35:59 CDT Polina Nix MD [facility] [place] CPT-01173 Level 3 Est. Patient 14:21:37 CDT Sharon Valdez APRN [facility] Procedures Code Procedure Name Date Entry Date Standard Description CPT-40411 Bladder Instillation 12:08:18 DJANGO DEVELOPER CPT-12203 Bladder Instillation 11:46:23 DJANGO DEVELOPER CPT-76067 Abdomen, 1 view 09:10:33 DJANGO DEVELOPER CPT-66279 UA Auto Dip only - LAB USE ONLY 17:23:43 CDT
--- OUTSIDE RECORDS SUMMARY | 2018-05-13 07:27 | XMS REPORT | Clinical Summary ---
Author Author Admin, [facility] Organization [facility] Address Unknown Phone Unavailable Allergies, Adverse Reactions, Alerts Allergy Name Reaction Description Start Date Severity Status Provider No Known Allergies Norma Elder Conditions or Problems Problem Name Problem Code Onset Date Status Entry Date Provider Comment Standard Description Annotate HYPERTENSION 401.9 Active Sharon Valdez BUSINESS DATABASE ANALYST Unspecified essential hypertension TINEA CRURIS 110.3 Active Sharon Valdez BUSINESS DATABASE ANALYST Dermatophytosis of groin and perianal area SUPRAPUBIC PAIN 789.09 Active Sharon Vladez BUSINESS DATABASE ANALYST Abdominal pain, other specified site; multiple sites VAGINAL PRURITUS 698.1 Active Sharon Valdez APRN Pruritus of genital organs Dysuria Active Polina Nix MD Dysuria Interstitial Cystitis Active Polina Nix MD Chronic interstitial cystitis Kidney stone 592.0 Active Cami Mayer MATTRESS FILLER Calculus of kidney Flank Pain Active Polina Nix MD Abdominal pain, unspecified site Medication List Medication Instructions Start Date Stop Date Generic Name NDC Status Provider Patient Instruction PRELIEF 340 (65-50) MG (CA-P) ORAL TABLET 2 tabs by mouth three times daily as needed. CALCIUM GLYCEROPHOSPHATE 14310392092 Active Norma Elder Active ALPRAZOLAM 0.5 MG ORAL TABLET 1/2 to 1 tab by mouth twice daily as needed ALPRAZOLAM 48855006653 Active Norma Elder Active FLUCONAZOLE 100 MG ORAL TABLET 1 by mouth once a week. FLUCONAZOLE 26559075692 No Longer Active Norma Elder Active ESTRADIOL 10 % CREAM Apply 0.25mg vaginally. ESTRADIOL 90049121950 No Longer Active Norma Osuna Active URO-MP 118 MG ORAL CAPSULE 1 cap by mouth every 6 hours as needed for bladder pain [facility]M BL[facility]NA [facility] 13272146885 Active Norma Enrrique Active ALPRAZOLAM 0.25 MG ORAL TABLET Take 1 tablet TID as needed for anxiety 03/04 ALPRAZOLAM 93672302689 No Longer Active Polina Nix MD Active ADULT ASPIRIN EC LOW STRENGTH 81 MG ORAL TABLET DELAYED RELEASE Take 1 tablet daily ASPIRIN 14482285694 No Longer Active Polina Nix MD Active VISION FORMULA TABS 1 tablet daily MULTIPLE VITAMINS- MINERALS 47328125792 No Longer Active Polina Nix MD Active NYSTATIN 658917 UNIT/GM EXTERNAL POWDER Apply to affected areas BID-TID 03/04 NYSTATIN 70515582226 No Longer Active Polina Nix MD Active LEXAPRO 10 MG ORAL TABLET 1 tablet daily ESCITALOPRAM OXALATE 99684414390 No Longer Active Polina Nix MD Active LISINOPRIL 10 MG ORAL TABLET Take 1 tablet daily LISINOPRIL 88114446151 No Longer Active Polina Nix MD Active DIFLUCAN 100 MG ORAL TABLET 1 tablet by mouth daily FLUCONAZOLE 28356685357 No Longer Active Sharon Valdez APRN Active LISINOPRIL 10 MG ORAL TABLET Take 1 tablet daily LISINOPRIL 10 MG ORAL TABLET 367216 LISINOPRIL Inactive LEXAPRO 10 MG ORAL TABLET 1 tablet daily LEXAPRO 10 MG ORAL TABLET 810552 ESCITALOPRAM OXALATE Inactive NYSTATIN 927389 UNIT/GM EXTERNAL POWDER Apply to affected areas BID-TID 03/04 NYSTATIN 210150 UNIT/GM EXTERNAL POWDER 829887 NYSTATIN Inactive VISION FORMULA TABS 1 tablet daily VISION FORMULA TABS MULTIPLE VITAMINS-MINERALS Inactive ADULT ASPIRIN EC LOW STRENGTH 81 MG ORAL TABLET DELAYED RELEASE Take 1 tablet daily ADULT ASPIRIN EC LOW STRENGTH 81 MG ORAL TABLET DELAYED RELEASE 402994 ASPIRIN Inactive ALPRAZOLAM 0.25 MG ORAL TABLET Take 1 tablet TID as needed for anxiety 03/04 ALPRAZOLAM 0.25 MG ORAL TABLET 338291 ALPRAZOLAM Inactive ESTRADIOL 10 % CREAM Apply 0.25mg vaginally. ESTRADIOL 10 % CREAM 26440711281 ESTRADIOL Inactive FLUCONAZOLE 100 MG ORAL TABLET 1 by mouth once a week. FLUCONAZOLE 100 MG ORAL TABLET 130723 FLUCONAZOLE Inactive DIFLUCAN 100 MG ORAL TABLET 1 tablet by mouth daily DIFLUCAN 100 MG ORAL TABLET 549947 FLUCONAZOLE Inactive Advance Directives Directive Description Start [...] negative Encounters Code Encounter Date Provider Facility CPT-27605 Level 3 Est. Patient 21:06:37 CDT Polina Nix MD [facility] CPT-41423 Level 3 Est. Patient 11:08:28 BALANCING MACHINE SET UP WORKER Polina Nix MD [facility] CPT-63829 Level 3 New Patient 11:08:12 BALANCING MACHINE SET UP WORKER Polina Nix MD [facility] CPT-20941 Level 3 Est. Patient 16:08:46 BALANCING MACHINE SET UP WORKER Polina Nix MD [facility] CPT-72626 Level 3 New Patient 23:35:59 CDT Polina Nix MD [facility] [place] CPT-38069 Level 3 Est. Patient 14:21:37 CDT Sharon Valdez APRN [facility] Procedures Code Procedure Name Date Entry Date Standard Description CPT-07636 Bladder Instillation 12:08:18 BALANCING MACHINE SET UP WORKER CPT-30258 Bladder Instillation 11:46:23 BALANCING MACHINE SET UP WORKER CPT-46050 Abdomen, 1 view 09:10:33 BALANCING MACHINE SET UP WORKER CPT-14832 UA Auto Dip only - LAB USE ONLY 17:23:43 CDT
--- OUTSIDE RECORDS SUMMARY | 2018-05-13 07:28 | XMS REPORT | Clinical Summary ---
Author Author Admin, [facility] Organization [facility] Address Unknown Phone Unavailable Allergies, Adverse Reactions, Alerts Allergy Name Reaction Description Start Date Severity Status Provider No Known Allergies Norma Elder Conditions or Problems Problem Name Problem Code Onset Date Status Entry Date Provider Comment Standard Description Annotate HYPERTENSION 401.9 Active Sharon Valdez APNS Unspecified essential hypertension TINEA CRURIS 110.3 Active Sharon Valdez APNS Dermatophytosis of groin and perianal area SUPRAPUBIC PAIN 789.09 Active Sharon Valdez APNS Abdominal pain, other specified site; multiple sites VAGINAL PRURITUS 698.1 Active Sharon Valdez APRN Pruritus of genital organs Dysuria Active Polina Nix MD Dysuria Interstitial Cystitis Active Polina Nix MD Chronic interstitial cystitis Kidney stone 592.0 Active Cami Mayer SCHOOL COMMUNITY RELATIONS COORDINATOR Calculus of kidney Flank Pain Active Polina Nix MD Abdominal pain, unspecified site Medication List Medication Instructions Start Date Stop Date Generic Name NDC Status Provider Patient Instruction PRELIEF 340 (65-50) MG (CA-P) ORAL TABLET 2 tabs by mouth three times daily as needed. CALCIUM GLYCEROPHOSPHATE 84597545854 Active Norma Elder Active ALPRAZOLAM 0.5 MG ORAL TABLET 1/2 to 1 tab by mouth twice daily as needed ALPRAZOLAM 52180102437 Active Norma Elder Active FLUCONAZOLE 100 MG ORAL TABLET 1 by mouth once a week. FLUCONAZOLE 82240696938 No Longer Active Norma Elder Active ESTRADIOL 10 % CREAM Apply 0.25mg vaginally. ESTRADIOL 64332213560 No Longer Active Norma Osuna Active URO-MP 118 MG ORAL CAPSULE 1 cap by mouth every 6 hours as needed for bladder pain [facility]-HYO-M BL-NA PHOS-PH [facility] 17406989011 Active Norma Enrrique Active ALPRAZOLAM 0.25 MG ORAL TABLET Take 1 tablet TID as needed for anxiety 03/04 ALPRAZOLAM 75226185295 No Longer Active Polina Nix MD Active ADULT ASPIRIN EC LOW STRENGTH 81 MG ORAL TABLET DELAYED RELEASE Take 1 tablet daily ASPIRIN 86116846517 No Longer Active Polina Nix MD Active VISION FORMULA TABS 1 tablet daily MULTIPLE VITAMINS- MINERALS 41320596409 No Longer Active Polina Nix MD Active NYSTATIN 589296 UNIT/GM EXTERNAL POWDER Apply to affected areas BID-TID 03/04 NYSTATIN 34260556918 No Longer Active Polina Nix MD Active LEXAPRO 10 MG ORAL TABLET 1 tablet daily ESCITALOPRAM OXALATE 58304987325 No Longer Active Polina Nix MD Active LISINOPRIL 10 MG ORAL TABLET Take 1 tablet daily LISINOPRIL 78729782010 No Longer Active Polina Nix MD Active DIFLUCAN 100 MG ORAL TABLET 1 tablet by mouth daily FLUCONAZOLE 33232793437 No Longer Active Sharon Valdez APRN Active LISINOPRIL 10 MG ORAL TABLET Take 1 tablet daily LISINOPRIL 10 MG ORAL TABLET 923036 LISINOPRIL Inactive LEXAPRO 10 MG ORAL TABLET 1 tablet daily LEXAPRO 10 MG ORAL TABLET 691439 ESCITALOPRAM OXALATE Inactive NYSTATIN 580993 UNIT/GM EXTERNAL POWDER Apply to affected areas BID-TID 03/04 NYSTATIN 716266 UNIT/GM EXTERNAL POWDER 711030 NYSTATIN Inactive VISION FORMULA TABS 1 tablet daily VISION FORMULA TABS MULTIPLE VITAMINS-MINERALS Inactive ADULT ASPIRIN EC LOW STRENGTH 81 MG ORAL TABLET DELAYED RELEASE Take 1 tablet daily ADULT ASPIRIN EC LOW STRENGTH 81 MG ORAL TABLET DELAYED RELEASE 330827 ASPIRIN Inactive ALPRAZOLAM 0.25 MG ORAL TABLET Take 1 tablet TID as needed for anxiety 03/04 ALPRAZOLAM 0.25 MG ORAL TABLET 179585 ALPRAZOLAM Inactive ESTRADIOL 10 % CREAM Apply 0.25mg vaginally. ESTRADIOL 10 % CREAM 77130141551 ESTRADIOL Inactive FLUCONAZOLE 100 MG ORAL TABLET 1 by mouth once a week. FLUCONAZOLE 100 MG ORAL TABLET 799337 FLUCONAZOLE Inactive DIFLUCAN 100 MG ORAL TABLET 1 tablet by mouth daily DIFLUCAN 100 MG ORAL TABLET 971895 FLUCONAZOLE Inactive Advance Directives Directive Description Start [...] negative Encounters Code Encounter Date Provider Facility CPT-88793 Level 3 Est. Patient 21:06:37 CDT Polina Nix MD [facility] CPT-52740 Level 3 Est. Patient 11:08:28 SKI TECHNICIAN Polina Nix MD [facility] CPT-19192 Level 3 New Patient 11:08:12 SKI TECHNICIAN Polina Nix MD [facility] CPT-52118 Level 3 Est. Patient 16:08:46 SKI TECHNICIAN Polina Nix MD [facility] CPT-82219 Level 3 New Patient 23:35:59 CDT Polina Nix MD [facility] - [place] CPT-73158 Level 3 Est. Patient 14:21:37 CDT Sharon Valdez APRN [facility] Procedures Code Procedure Name Date Entry Date Standard Description CPT-73743 Bladder Instillation 11:46:23 SKI TECHNICIAN CPT-84363 Abdomen, 1 view 09:10:33 SKI TECHNICIAN CPT-01924 UA Auto Dip only - LAB USE ONLY 17:23:43 CDT
--- OUTSIDE RECORDS SUMMARY | 2018-05-13 07:28 | XMS REPORT | Clinical Summary ---
Author Author Admin, [facility] Organization [facility] Address Unknown Phone Unavailable Allergies, Adverse Reactions, Alerts Allergy Name Reaction Description Start Date Severity Status Provider No Known Allergies Norma Elder Conditions or Problems Problem Name Problem Code Onset Date Status Entry Date Provider Comment Standard Description Annotate HYPERTENSION 401.9 Active Sharon Valdez TWITCHELL OPERATOR Unspecified essential hypertension TINEA CRURIS 110.3 Active Sharon Valdez TWITCHELL OPERATOR Dermatophytosis of groin and perianal area SUPRAPUBIC PAIN 789.09 Active Sharon Valdez TWITCHELL OPERATOR Abdominal pain, other specified site; multiple sites VAGINAL PRURITUS 698.1 Active Sharon Valdez APRN Pruritus of genital organs Dysuria Active Polina Nix MD Dysuria Interstitial Cystitis Active Polina Nix MD Chronic interstitial cystitis Kidney stone 592.0 Active Cami Mayer TRANSPORT MEDIC Calculus of kidney Flank Pain Active Polina Nix MD Abdominal pain, unspecified site Medication List Medication Instructions Start Date Stop Date Generic Name NDC Status Provider Patient Instruction PRELIEF 340 (65-50) MG (CA-P) ORAL TABLET 2 tabs by mouth three times daily as needed. CALCIUM GLYCEROPHOSPHATE 32347477483 Active Norma Elder Active ALPRAZOLAM 0.5 MG ORAL TABLET 1/2 to 1 tab by mouth twice daily as needed ALPRAZOLAM 42419529558 Active Norma Elder Active FLUCONAZOLE 100 MG ORAL TABLET 1 by mouth once a week. FLUCONAZOLE 37274257430 No Longer Active Norma Elder Active ESTRADIOL 10 % CREAM Apply 0.25mg vaginally. ESTRADIOL 85778202146 No Longer Active Norma Osuna Active URO-MP 118 MG ORAL CAPSULE 1 cap by mouth every 6 hours as needed for bladder pain [facility]-HYO-M BL-NA PHOS-PH [facility] 54596206644 Active Norma Enrrique Active ALPRAZOLAM 0.25 MG ORAL TABLET Take 1 tablet TID as needed for anxiety 03/04 ALPRAZOLAM 75849055376 No Longer Active Polina Nix MD Active ADULT ASPIRIN EC LOW STRENGTH 81 MG ORAL TABLET DELAYED RELEASE Take 1 tablet daily ASPIRIN 95272012315 No Longer Active Polina Nix MD Active VISION FORMULA TABS 1 tablet daily MULTIPLE VITAMINS- MINERALS 34649660740 No Longer Active Polina Nix MD Active NYSTATIN 486817 UNIT/GM EXTERNAL POWDER Apply to affected areas BID-TID 03/04 NYSTATIN 93221251322 No Longer Active Polina Nix MD Active LEXAPRO 10 MG ORAL TABLET 1 tablet daily ESCITALOPRAM OXALATE 80085651494 No Longer Active Polina Nix MD Active LISINOPRIL 10 MG ORAL TABLET Take 1 tablet daily LISINOPRIL 67222926685 No Longer Active Polina Nix MD Active DIFLUCAN 100 MG ORAL TABLET 1 tablet by mouth daily FLUCONAZOLE 83026892884 No Longer Active Sharon Valdez APRN Active LISINOPRIL 10 MG ORAL TABLET Take 1 tablet daily LISINOPRIL 10 MG ORAL TABLET 882790 LISINOPRIL Inactive LEXAPRO 10 MG ORAL TABLET 1 tablet daily LEXAPRO 10 MG ORAL TABLET 006928 ESCITALOPRAM OXALATE Inactive NYSTATIN 319884 UNIT/GM EXTERNAL POWDER Apply to affected areas BID-TID 03/04 NYSTATIN 475700 UNIT/GM EXTERNAL POWDER 034197 NYSTATIN Inactive VISION FORMULA TABS 1 tablet daily VISION FORMULA TABS MULTIPLE VITAMINS-MINERALS Inactive ADULT ASPIRIN EC LOW STRENGTH 81 MG ORAL TABLET DELAYED RELEASE Take 1 tablet daily ADULT ASPIRIN EC LOW STRENGTH 81 MG ORAL TABLET DELAYED RELEASE 116057 ASPIRIN Inactive ALPRAZOLAM 0.25 MG ORAL TABLET Take 1 tablet TID as needed for anxiety 03/04 ALPRAZOLAM 0.25 MG ORAL TABLET 298614 ALPRAZOLAM Inactive ESTRADIOL 10 % CREAM Apply 0.25mg vaginally. ESTRADIOL 10 % CREAM 88680175514 ESTRADIOL Inactive FLUCONAZOLE 100 MG ORAL TABLET 1 by mouth once a week. FLUCONAZOLE 100 MG ORAL TABLET 022859 FLUCONAZOLE Inactive DIFLUCAN 100 MG ORAL TABLET 1 tablet by mouth daily DIFLUCAN 100 MG ORAL TABLET 473106 FLUCONAZOLE Inactive Advance Directives Directive Description Start [...] negative Encounters Code Encounter Date Provider Facility CPT-01471 Level 3 Est. Patient 21:06:37 CDT Polina Nix MD [facility] CPT-47411 Level 3 Est. Patient 11:08:28 REMOTE PILOT OPERATOR Polina Nix MD [facility] CPT-76743 Level 3 New Patient 11:08:12 REMOTE PILOT OPERATOR Polina Nix MD [facility] CPT-58351 Level 3 Est. Patient 16:08:46 REMOTE PILOT OPERATOR Polina Nix MD [facility] CPT-43693 Level 3 New Patient 23:35:59 CDT Polina Nix MD [facility] - [place] CPT-24412 Level 3 Est. Patient 14:21:37 CDT Sharon Valdez APRN [facility] -[facility] Procedures Code Procedure Name Date Entry Date Standard Description CPT-95531 Bladder Instillation 11:46:23 REMOTE PILOT OPERATOR CPT-58254 Abdomen, 1 view 09:10:33 REMOTE PILOT OPERATOR CPT-43029 UA Auto Dip only - LAB USE ONLY 17:23:43 CDT
--- OUTSIDE RECORDS SUMMARY | 2018-05-13 07:28 | XMS REPORT | Clinical Summary ---
Author Author Admin, [facility] Organization [facility] Address Unknown Phone Unavailable Allergies, Adverse Reactions, Alerts Allergy Name Reaction Description Start Date Severity Status Provider No Known Allergies Norma Elder Conditions or Problems Problem Name Problem Code Onset Date Status Entry Date Provider Comment Standard Description Annotate HYPERTENSION 401.9 Active Sharon Valdez LANGUAGE THERAPIST Unspecified essential hypertension TINEA CRURIS 110.3 Active Sharon Valdez LANGUAGE THERAPIST Dermatophytosis of groin and perianal area SUPRAPUBIC PAIN 789.09 Active Sharon Valdez LANGUAGE THERAPIST Abdominal pain, other specified site; multiple sites VAGINAL PRURITUS 698.1 Active Sharon Valdez APRN Pruritus of genital organs Dysuria Active Polina Nix MD Dysuria Interstitial Cystitis Active Polina Nix MD Chronic interstitial cystitis Kidney stone 592.0 Active Cami Mayer COMMUNICATIONS AGENT Calculus of kidney Flank Pain Active Polina Nix MD Abdominal pain, unspecified site Medication List Medication Instructions Start Date Stop Date Generic Name NDC Status Provider Patient Instruction PRELIEF 340 (65-50) MG (CA-P) ORAL TABLET 2 tabs by mouth three times daily as needed. CALCIUM GLYCEROPHOSPHATE 93887551801 Active Norma Elder Active ALPRAZOLAM 0.5 MG ORAL TABLET 1/2 to 1 tab by mouth twice daily as needed ALPRAZOLAM 19210860479 Active Norma Elder Active FLUCONAZOLE 100 MG ORAL TABLET 1 by mouth once a week. FLUCONAZOLE 94049227489 No Longer Active Norma Elder Active ESTRADIOL 10 % CREAM Apply 0.25mg vaginally. ESTRADIOL 47362478111 No Longer Active Norma Osuna Active URO-MP 118 MG ORAL CAPSULE 1 cap by mouth every 6 hours as needed for bladder pain [facility]-HYO-M BL-NA PHOS-PH [facility] 79339459553 Active Norma Enrrique Active ALPRAZOLAM 0.25 MG ORAL TABLET Take 1 tablet TID as needed for anxiety 03/04 ALPRAZOLAM 60218217315 No Longer Active Polina Nix MD Active ADULT ASPIRIN EC LOW STRENGTH 81 MG ORAL TABLET DELAYED RELEASE Take 1 tablet daily ASPIRIN 81963871729 No Longer Active Polina Nix MD Active VISION FORMULA TABS 1 tablet daily MULTIPLE VITAMINS- MINERALS 37856691534 No Longer Active Polina Nix MD Active NYSTATIN 139620 UNIT/GM EXTERNAL POWDER Apply to affected areas BID-TID 03/04 NYSTATIN 17775755594 No Longer Active Polina Nix MD Active LEXAPRO 10 MG ORAL TABLET 1 tablet daily ESCITALOPRAM OXALATE 60072109368 No Longer Active Polina Nix MD Active LISINOPRIL 10 MG ORAL TABLET Take 1 tablet daily LISINOPRIL 34567802887 No Longer Active Polina Nix MD Active DIFLUCAN 100 MG ORAL TABLET 1 tablet by mouth daily FLUCONAZOLE 78362722746 No Longer Active Sharon Valdez APRN Active LISINOPRIL 10 MG ORAL TABLET Take 1 tablet daily LISINOPRIL 10 MG ORAL TABLET 518566 LISINOPRIL Inactive LEXAPRO 10 MG ORAL TABLET 1 tablet daily LEXAPRO 10 MG ORAL TABLET 157158 ESCITALOPRAM OXALATE Inactive NYSTATIN 596291 UNIT/GM EXTERNAL POWDER Apply to affected areas BID-TID 03/04 NYSTATIN 726557 UNIT/GM EXTERNAL POWDER 608292 NYSTATIN Inactive VISION FORMULA TABS 1 tablet daily VISION FORMULA TABS MULTIPLE VITAMINS-MINERALS Inactive ADULT ASPIRIN EC LOW STRENGTH 81 MG ORAL TABLET DELAYED RELEASE Take 1 tablet daily ADULT ASPIRIN EC LOW STRENGTH 81 MG ORAL TABLET DELAYED RELEASE 778819 ASPIRIN Inactive ALPRAZOLAM 0.25 MG ORAL TABLET Take 1 tablet TID as needed for anxiety 03/04 ALPRAZOLAM 0.25 MG ORAL TABLET 804358 ALPRAZOLAM Inactive ESTRADIOL 10 % CREAM Apply 0.25mg vaginally. ESTRADIOL 10 % CREAM 13415545588 ESTRADIOL Inactive FLUCONAZOLE 100 MG ORAL TABLET 1 by mouth once a week. FLUCONAZOLE 100 MG ORAL TABLET 182813 FLUCONAZOLE Inactive DIFLUCAN 100 MG ORAL TABLET 1 tablet by mouth daily DIFLUCAN 100 MG ORAL TABLET 403572 FLUCONAZOLE Inactive Advance Directives Directive Description Start [...] negative Encounters Code Encounter Date Provider Facility CPT-75126 Level 3 Est. Patient 21:06:37 CDT Polina Nix MD [facility] CPT-94323 Level 3 Est. Patient 11:08:28 EYE SURGEON Polina Nix MD [facility] CPT-85196 Level 3 New Patient 11:08:12 EYE SURGEON Polina Nix MD [facility] CPT-64136 Level 3 Est. Patient 16:08:46 EYE SURGEON Polina Nix MD [facility] CPT-58548 Level 3 New Patient 23:35:59 CDT Polina Nix MD [facility] - [place] CPT-66697 Level 3 Est. Patient 14:21:37 CDT Sharon Valdez APRN [facility] -[facility] Procedures Code Procedure Name Date Entry Date Standard Description CPT-32418 Bladder Instillation 11:46:23 EYE SURGEON CPT-18992 Abdomen, 1 view 09:10:33 EYE SURGEON CPT-14475 UA Auto Dip only - LAB USE ONLY 17:23:43 CDT
--- OUTSIDE RECORDS SUMMARY | 2018-05-13 07:29 | XMS REPORT | Clinical Summary ---
Author Author Admin, [facility] Organization [facility] Address Unknown Phone Unavailable Allergies, Adverse Reactions, Alerts Allergy Name Reaction Description Start Date Severity Status Provider No Known Allergies Norma Elder Conditions or Problems Problem Name Problem Code Onset Date Status Entry Date Provider Comment Standard Description Annotate HYPERTENSION 401.9 Active Sharon Valdez FOREST SUPERVISOR Unspecified essential hypertension TINEA CRURIS 110.3 Active Sharon Valdez FOREST SUPERVISOR Dermatophytosis of groin and perianal area SUPRAPUBIC PAIN 789.09 Active Sharon Valdez FOREST SUPERVISOR Abdominal pain, other specified site; multiple sites VAGINAL PRURITUS 698.1 Active Sharon Valdez APRN Pruritus of genital organs Dysuria Active Polina Nix MD Dysuria Interstitial Cystitis Active Polina Nix MD Chronic interstitial cystitis Kidney stone 592.0 Active 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 CALCIUM GLYCEROPHOSPHATE 51674139019 Active Norma Elder Active ALPRAZOLAM 0.5 MG ORAL TABLET 1/2 to 1 tab by mouth twice daily as needed ALPRAZOLAM 18406418259 Active Norma Elder Active FLUCONAZOLE 100 MG ORAL TABLET 1 by mouth once a week. FLUCONAZOLE 58403806736 No Longer Active Norma Elder Active ESTRADIOL 10 % CREAM Apply 0.25mg vaginally. ESTRADIOL 27679796881 No Longer Active Norma Osuna Active URO-MP 118 MG ORAL CAPSULE 1 cap by mouth every 6 hours as needed for bladder pain [facility]-HYO-M BL-NA PHOS-PH [facility] 44693617916 Active Norma Enrrique Active ALPRAZOLAM 0.25 MG ORAL TABLET Take 1 tablet TID as needed for anxiety 03/04 ALPRAZOLAM 49604055022 No Longer Active Polina Nix MD Active ADULT ASPIRIN EC LOW STRENGTH 81 MG ORAL TABLET DELAYED RELEASE Take 1 tablet daily ASPIRIN 95383889551 No Longer Active Polina Nix MD Active VISION FORMULA TABS 1 tablet daily MULTIPLE VITAMINS- MINERALS 66973327350 No Longer Active Polina Nix MD Active NYSTATIN 173168 UNIT/GM EXTERNAL POWDER Apply to affected areas BID-TID 03/04 NYSTATIN 96257580751 No Longer Active Polina Nix MD Active LEXAPRO 10 MG ORAL TABLET 1 tablet daily ESCITALOPRAM OXALATE 90742043697 No Longer Active Polina Nix MD Active LISINOPRIL 10 MG ORAL TABLET Take 1 tablet daily LISINOPRIL 22758460244 No Longer Active Polina Nix MD Active DIFLUCAN 100 MG ORAL TABLET 1 tablet by mouth daily FLUCONAZOLE 82618291564 No Longer Active Sharon Valdez APRN Active LISINOPRIL 10 MG ORAL TABLET Take 1 tablet daily LISINOPRIL 10 MG ORAL TABLET 837451 LISINOPRIL Inactive LEXAPRO 10 MG ORAL TABLET 1 tablet daily LEXAPRO 10 MG ORAL TABLET 713138 ESCITALOPRAM OXALATE Inactive NYSTATIN 008204 UNIT/GM EXTERNAL POWDER Apply to affected areas BID-TID 03/04 NYSTATIN 279566 UNIT/GM EXTERNAL POWDER 864965 NYSTATIN Inactive VISION FORMULA TABS 1 tablet daily VISION FORMULA TABS MULTIPLE VITAMINS-MINERALS Inactive ADULT ASPIRIN EC LOW STRENGTH 81 MG ORAL TABLET DELAYED RELEASE Take 1 tablet daily ADULT ASPIRIN EC LOW STRENGTH 81 MG ORAL TABLET DELAYED RELEASE 461392 ASPIRIN Inactive ALPRAZOLAM 0.25 MG ORAL TABLET Take 1 tablet TID as needed for anxiety 03/04 ALPRAZOLAM 0.25 MG ORAL TABLET 955415 ALPRAZOLAM Inactive ESTRADIOL 10 % CREAM Apply 0.25mg vaginally. ESTRADIOL 10 % CREAM 00967284956 ESTRADIOL Inactive FLUCONAZOLE 100 MG ORAL TABLET 1 by mouth once a week. FLUCONAZOLE 100 MG ORAL TABLET 138041 FLUCONAZOLE Inactive DIFLUCAN 100 MG ORAL TABLET 1 tablet by mouth daily DIFLUCAN 100 MG ORAL TABLET 884629 FLUCONAZOLE Inactive Advance Directives Directive Description Start Date PERMISSION TO SHARE Vital Signs Date Name Value Unit Range Description blood pressure, diastolic 83 mm[Hg] BP farah [...] negative Encounters Code Encounter Date Provider Facility CPT-00650 Level 3 Est. Patient 11:08:28 MICHELLE Nix MD [facility] CPT-82688 Level 3 New Patient 11:08:12 FILING CLERK Polina Nix MD [facility] CPT-20224 Level 3 Est. Patient 16:08:46 FILING CLERK Polina Nix MD [facility] CPT-14161 Level 3 New Patient 23:35:59 CDT Polina Nix MD [facility] [place] CPT-18898 Level 3 Est. Patient 14:21:37 CDT Sharon Valdez APRN [facility] -[facility] Procedures Code Procedure Name Date Entry Date Standard Description CPT-37356 Abdomen, 1 view 09:10:33 FILING CLERK CPT-22923 UA Auto Dip only - LAB USE ONLY 17:23:43 CDT
--- OUTSIDE RECORDS SUMMARY | 2018-05-13 07:29 | XMS REPORT | Clinical Summary ---
Author Author Admin, [facility] Organization [facility] Address Unknown Phone Unavailable Allergies, Adverse Reactions, Alerts Allergy Name Reaction Description Start Date Severity Status Provider No Known Allergies Norma Elder Conditions or Problems Problem Name Problem Code Onset Date Status Entry Date Provider Comment Standard Description Annotate HYPERTENSION 401.9 Active Sharon Valdez NATIONAL EXPANSION RECRUITER Unspecified essential hypertension TINEA CRURIS 110.3 Active Sharon Valdez NATIONAL EXPANSION RECRUITER Dermatophytosis of groin and perianal area SUPRAPUBIC PAIN 789.09 Active Sharon Valdez NATIONAL EXPANSION RECRUITER Abdominal pain, other specified site; multiple sites VAGINAL PRURITUS 698.1 Active Sharon Valdez APRN Pruritus of genital organs Dysuria Active Polina Nix MD Dysuria Interstitial Cystitis Active Polina Nix MD Chronic interstitial cystitis Kidney stone 592.0 Active 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 ESTRADIOL 03544359209 Active Polina Nix MD Active FLUCONAZOLE 100 MG ORAL TABLET 1 by mouth once a week. FLUCONAZOLE 43803954038 Active Polina Nix MD Active ALPRAZOLAM 0.25 MG ORAL TABLET Take 1 tablet TID as needed for anxiety 03/04 ALPRAZOLAM 14406641964 No Longer Active Polina Nix MD Active ADULT ASPIRIN EC LOW STRENGTH 81 MG ORAL TABLET DELAYED RELEASE Take 1 tablet daily ASPIRIN 47187607542 No Longer Active Polina Nix MD Active VISION FORMULA TABS 1 tablet daily MULTIPLE VITAMINS- MINERALS 65018534904 No Longer Active Polina Nix MD Active NYSTATIN 411770 UNIT/GM EXTERNAL POWDER Apply to affected areas BID-TID 03/04 NYSTATIN 09427245848 No Longer Active Polina Nix MD Active LEXAPRO 10 MG ORAL TABLET 1 tablet daily ESCITALOPRAM OXALATE 40133640121 No Longer Active Polina iNx MD Active LISINOPRIL 10 MG ORAL TABLET Take 1 tablet daily LISINOPRIL 43141903814 No Longer Active Polina Nix MD Active DIFLUCAN 100 MG ORAL TABLET 1 tablet by mouth daily FLUCONAZOLE 89685071819 No Longer Active Sharon Valdez APRN Active LISINOPRIL 10 MG ORAL TABLET Take 1 tablet daily LISINOPRIL 10 MG ORAL TABLET 672274 LISINOPRIL Inactive LEXAPRO 10 MG ORAL TABLET 1 tablet daily LEXAPRO 10 MG ORAL TABLET 570416 ESCITALOPRAM OXALATE Inactive NYSTATIN 131613 UNIT/GM EXTERNAL POWDER Apply to affected areas BID-TID 03/04 NYSTATIN 726755 UNIT/GM EXTERNAL POWDER 479578 NYSTATIN Inactive VISION FORMULA TABS 1 tablet daily VISION FORMULA TABS MULTIPLE VITAMINS-MINERALS Inactive ADULT ASPIRIN EC LOW STRENGTH 81 MG ORAL TABLET DELAYED RELEASE Take 1 tablet daily ADULT ASPIRIN EC LOW STRENGTH 81 MG ORAL TABLET DELAYED RELEASE 915073 ASPIRIN Inactive ALPRAZOLAM 0.25 MG ORAL TABLET Take 1 tablet TID as needed for anxiety 03/04 ALPRAZOLAM 0.25 MG ORAL TABLET 838100 ALPRAZOLAM Inactive DIFLUCAN 100 MG ORAL TABLET 1 tablet by mouth daily DIFLUCAN 100 MG ORAL TABLET 844178 FLUCONAZOLE Inactive Advance Directives Directive Description Start [...] negative Encounters Code Encounter Date Provider Facility CPT-86044 Level 3 Est. Patient 11:08:28 VP COMPLIANCE Polina Nix MD [facility] CPT-79036 Level 3 New Patient 11:08:12 VP COMPLIANCE Polina Nix MD [facility] CPT-28049 Level 3 Est. Patient 16:08:46 VP COMPLIANCE Polina Nix MD [facility] CPT-04523 Level 3 New Patient 23:35:59 CDT Polina Nxi MD [facility] - [place] CPT-51726 Level 3 Est. Patient 14:21:37 CDT Sharon Valdez APRN [facility] -[facility] [address] Procedures Code Procedure Name Date Entry Date Standard Description CPT-97259 Abdomen, 1 view 09:10:33 VP COMPLIANCE CPT-53318 UA Auto Dip only - LAB USE ONLY 17:23:43 CDT
--- OUTSIDE RECORDS SUMMARY | 2018-05-13 07:29 | XMS REPORT | Clinical Summary ---
Author Author Admin, [facility] Organization [facility] Address Unknown Phone Unavailable Allergies, Adverse Reactions, Alerts Allergy Name Reaction Description Start Date Severity Status Provider No Known Allergies Norma Elder Conditions or Problems Problem Name Problem Code Onset Date Status Entry Date Provider Comment Standard Description Annotate HYPERTENSION 401.9 Active Sharon Valdez FOLDER GLUER OPERATOR Unspecified essential hypertension TINEA CRURIS 110.3 Active Sharon Valdez FOLDER GLUER OPERATOR Dermatophytosis of groin and perianal area SUPRAPUBIC PAIN 789.09 Active Sharon Valdez FOLDER GLUER OPERATOR Abdominal pain, other specified site; multiple sites VAGINAL PRURITUS 698.1 Active Sharon Valdez APRN Pruritus of genital organs Dysuria Active Polina Nix MD Dysuria Interstitial Cystitis Active Polina Nix MD Chronic interstitial cystitis Kidney stone 592.0 Active 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 ESTRADIOL 77707404369 Active Polina Nix MD Active FLUCONAZOLE 100 MG ORAL TABLET 1 by mouth once a week. FLUCONAZOLE 11236491520 Active Polina Nix MD Active ALPRAZOLAM 0.25 MG ORAL TABLET Take 1 tablet TID as needed for anxiety 03/04 ALPRAZOLAM 69689359978 No Longer Active Polina Nix MD Active ADULT ASPIRIN EC LOW STRENGTH 81 MG ORAL TABLET DELAYED RELEASE Take 1 tablet daily ASPIRIN 63700516539 No Longer Active Polina Nix MD Active VISION FORMULA TABS 1 tablet daily MULTIPLE VITAMINS- MINERALS 46312979381 No Longer Active Polina Nix MD Active NYSTATIN 585120 UNIT/GM EXTERNAL POWDER Apply to affected areas BID-TID 03/04 NYSTATIN 85809613504 No Longer Active Polina Nix MD Active LEXAPRO 10 MG ORAL TABLET 1 tablet daily ESCITALOPRAM OXALATE 36792706587 No Longer Active Polina Nix MD Active LISINOPRIL 10 MG ORAL TABLET Take 1 tablet daily LISINOPRIL 66435030231 No Longer Active Polina Nix MD Active DIFLUCAN 100 MG ORAL TABLET 1 tablet by mouth daily FLUCONAZOLE 92623771946 No Longer Active Sharon Valdez APRN Active LISINOPRIL 10 MG ORAL TABLET Take 1 tablet daily LISINOPRIL 10 MG ORAL TABLET 848083 LISINOPRIL Inactive LEXAPRO 10 MG ORAL TABLET 1 tablet daily LEXAPRO 10 MG ORAL TABLET 624012 ESCITALOPRAM OXALATE Inactive NYSTATIN 921503 UNIT/GM EXTERNAL POWDER Apply to affected areas BID-TID 03/04 NYSTATIN 933091 UNIT/GM EXTERNAL POWDER 482126 NYSTATIN Inactive VISION FORMULA TABS 1 tablet daily VISION FORMULA TABS MULTIPLE VITAMINS-MINERALS Inactive ADULT ASPIRIN EC LOW STRENGTH 81 MG ORAL TABLET DELAYED RELEASE Take 1 tablet daily ADULT ASPIRIN EC LOW STRENGTH 81 MG ORAL TABLET DELAYED RELEASE 001738 ASPIRIN Inactive ALPRAZOLAM 0.25 MG ORAL TABLET Take 1 tablet TID as needed for anxiety 03/04 ALPRAZOLAM 0.25 MG ORAL TABLET 153308 ALPRAZOLAM Inactive DIFLUCAN 100 MG ORAL TABLET 1 tablet by mouth daily DIFLUCAN 100 MG ORAL TABLET 768953 FLUCONAZOLE Inactive Advance Directives Directive Description Start [...] negative Encounters Code Encounter Date Provider Facility CPT-67664 Level 3 Est. Patient 11:08:28 RIVER BOAT CAPTAIN Polina Nix MD [facility] CPT-59738 Level 3 New Patient 11:08:12 RIVER BOAT CAPTAIN Polina Nix MD [facility] CPT-68588 Level 3 Est. Patient 16:08:46 RIVER BOAT CAPTAIN Polina Nix MD [facility] CPT-58026 Level 3 New Patient 23:35:59 CDT Polina Nix MD [facility] - [place] CPT-99690 Level 3 Est. Patient 14:21:37 CDT Sharon Valdez APRN [facility] -[facility] Procedures Code Procedure Name Date Entry Date Standard Description CPT-90274 Abdomen, 1 view 09:10:33 RIVER BOAT CAPTAIN CPT-09608 UA Auto Dip only - LAB USE ONLY 17:23:43 CDT
--- OUTSIDE RECORDS SUMMARY | 2018-05-13 07:29 | XMS REPORT | Clinical Summary ---
Author Author Admin, [facility] Organization [facility] Address Unknown Phone Unavailable Allergies, Adverse Reactions, Alerts Allergy Name Reaction Description Start Date Severity Status Provider No Known Allergies Norma Elder Conditions or Problems Problem Name Problem Code Onset Date Status Entry Date Provider Comment Standard Description Annotate HYPERTENSION 401.9 Active Sharon Valdez HAIR DESIGNER Unspecified essential hypertension TINEA CRURIS 110.3 Active Sharon Valdez HAIR DESIGNER Dermatophytosis of groin and perianal area SUPRAPUBIC PAIN 789.09 Active Sharon Valdez HAIR DESIGNER Abdominal pain, other specified site; multiple sites VAGINAL PRURITUS 698.1 Active Sharon Valdez APRN Pruritus of genital organs Dysuria Active Polina Nix MD Dysuria Interstitial Cystitis Active Polina Nix MD Chronic interstitial cystitis Kidney stone 592.0 Active Cami Mayer PAYROLL EXAMINER Calculus of kidney Flank Pain Active Polina Nix MD Abdominal pain, unspecified site Medication List Medication Instructions Start Date Stop Date Generic Name NDC Status Provider Patient Instruction PRELIEF 340 (65-50) MG (CA-P) ORAL TABLET 2 tabs by mouth three times daily as needed. CALCIUM GLYCEROPHOSPHATE 70895283544 Active Norma Elder Active ALPRAZOLAM 0.5 MG ORAL TABLET 1/2 to 1 tab by mouth twice daily as needed ALPRAZOLAM 87933937839 Active Norma Elder Active FLUCONAZOLE 100 MG ORAL TABLET 1 by mouth once a week. FLUCONAZOLE 35246116679 No Longer Active Norma Elder Active ESTRADIOL 10 % CREAM Apply 0.25mg vaginally. ESTRADIOL 50974496016 No Longer Active Norma Osuna Active URO-MP 118 MG ORAL CAPSULE 1 cap by mouth every 6 hours as needed for bladder pain [facility]-HYO-M BL-NA PHOS-PH [facility] 65320649260 Active Norma Enrrique Active ALPRAZOLAM 0.25 MG ORAL TABLET Take 1 tablet TID as needed for anxiety 03/04 ALPRAZOLAM 80327932277 No Longer Active Polina Nix MD Active ADULT ASPIRIN EC LOW STRENGTH 81 MG ORAL TABLET DELAYED RELEASE Take 1 tablet daily ASPIRIN 60089189273 No Longer Active Polina Nix MD Active VISION FORMULA TABS 1 tablet daily MULTIPLE VITAMINS- MINERALS 75831567921 No Longer Active Polina Nix MD Active NYSTATIN 775301 UNIT/GM EXTERNAL POWDER Apply to affected areas BID-TID 03/04 NYSTATIN 65322277116 No Longer Active Polina Nix MD Active LEXAPRO 10 MG ORAL TABLET 1 tablet daily ESCITALOPRAM OXALATE 29793292984 No Longer Active Polina Nix MD Active LISINOPRIL 10 MG ORAL TABLET Take 1 tablet daily LISINOPRIL 31213843432 No Longer Active Polina Nix MD Active DIFLUCAN 100 MG ORAL TABLET 1 tablet by mouth daily FLUCONAZOLE 85833039237 No Longer Active Sharon Valdez APRN Active LISINOPRIL 10 MG ORAL TABLET Take 1 tablet daily LISINOPRIL 10 MG ORAL TABLET 171226 LISINOPRIL Inactive LEXAPRO 10 MG ORAL TABLET 1 tablet daily LEXAPRO 10 MG ORAL TABLET 465121 ESCITALOPRAM OXALATE Inactive NYSTATIN 668264 UNIT/GM EXTERNAL POWDER Apply to affected areas BID-TID 03/04 NYSTATIN 737549 UNIT/GM EXTERNAL POWDER 320724 NYSTATIN Inactive VISION FORMULA TABS 1 tablet daily VISION FORMULA TABS MULTIPLE VITAMINS-MINERALS Inactive ADULT ASPIRIN EC LOW STRENGTH 81 MG ORAL TABLET DELAYED RELEASE Take 1 tablet daily ADULT ASPIRIN EC LOW STRENGTH 81 MG ORAL TABLET DELAYED RELEASE 781570 ASPIRIN Inactive ALPRAZOLAM 0.25 MG ORAL TABLET Take 1 tablet TID as needed for anxiety 03/04 ALPRAZOLAM 0.25 MG ORAL TABLET 295931 ALPRAZOLAM Inactive ESTRADIOL 10 % CREAM Apply 0.25mg vaginally. ESTRADIOL 10 % CREAM 05536016476 ESTRADIOL Inactive FLUCONAZOLE 100 MG ORAL TABLET 1 by mouth once a week. FLUCONAZOLE 100 MG ORAL TABLET 962223 FLUCONAZOLE Inactive DIFLUCAN 100 MG ORAL TABLET 1 tablet by mouth daily DIFLUCAN 100 MG ORAL TABLET 512249 FLUCONAZOLE Inactive Advance Directives Directive Description Start [...] negative Encounters Code Encounter Date Provider Facility CPT-59707 Level 3 Est. Patient 21:06:37 CDT Polina Nix MD [facility] CPT-95231 Level 3 Est. Patient 11:08:28 REEL HOOKER Polina Nix MD [facility] CPT-96092 Level 3 New Patient 11:08:12 REEL HOOKER Polina Nix MD [facility] CPT-73184 Level 3 Est. Patient 16:08:46 REEL HOOKER Polina Nix MD [facility] CPT-80618 Level 3 New Patient 23:35:59 CDT Polina Nix MD [facility] [place] CPT-10785 Level 3 Est. Patient 14:21:37 CDT Sharon Valdez APRN [facility] Procedures Code Procedure Name Date Entry Date Standard Description CPT-14734 Bladder Instillation 11:46:23 REEL HOOKER CPT-96874 Abdomen, 1 view 09:10:33 REEL HOOKER CPT-26898 UA Auto Dip only - LAB USE ONLY 17:23:43 CDT
--- OUTSIDE RECORDS SUMMARY | 2018-05-13 07:30 | XMS REPORT | Clinical Summary ---
Author Author Admin, [facility] Organization [employer] Address Unknown Phone Unavailable Allergies, Adverse Reactions, Alerts Allergy Name Reaction Description Start Date Severity Status Provider No Known Allergies Echo Richardson Conditions or Problems Problem Name Problem Code Onset Date Status Entry Date Provider Comment Standard Description Annotate HYPERTENSION 401.9 Active Sharon Valdez APRN Unspecified essential hypertension TINEA CRURIS 110.3 Active Sharon Valdez APRN Dermatophytosis of groin and perianal area SUPRAPUBIC PAIN 789.09 Active Sharon Valdez APRN Abdominal pain, other specified site; multiple sites VAGINAL PRURITUS 698.1 Active Sharon Valdez APRN Pruritus of genital organs Dysuria Active Polina Nix MD Dysuria Medication List Medication Instructions Start Date Stop Date Generic Name NDC Status Provider Patient Instruction DIFLUCAN 100 MG TAB 1 tablet by mouth daily FLUCONAZOLE 10349270871 No Longer Active Sharon Valdez APRN Active NYSTATIN 534731 UNIT/GM POWD Apply to affected areas BID-TID NYSTATIN 25540289919 Active Sharon Valdez APRN Active VISION FORMULA TABS 1 tablet daily MULTIPLE VITAMINS-MINERALS 51698931936 Active Sharon Valdez APRN Active ADULT ASPIRIN EC LOW STRENGTH 81 MG TBEC Take 1 tablet daily ASPIRIN 46292037789 Active Sharon Valdez APRN Active ALPRAZOLAM 0.25 MG TABS Take 1 tablet TID as needed for anxiety ALPRAZOLAM 71355113270 Active Sharon Valdez APRN Active LEXAPRO 10 MG TABS 1 tablet daily ESCITALOPRAM OXALATE 50965980063 Active Sharon Valdez APRN Active LISINOPRIL 10 MG TABS Take 1 tablet daily LISINOPRIL 35082710656 Active Sharon Valdez APRN Active DIFLUCAN 100 MG TAB 1 tablet by mouth daily DIFLUCAN 100 MG TAB 134690 FLUCONAZOLE Inactive Advance Directives Directive Description Start Date PERMISSION TO SHARE Vital Signs Date Name Value Unit Range Description blood pressure, diastolic - 8462-4 62 mm[Hg] BP farah blood pressure, systolic - 8480-6 124 mm[Hg] BP sys height E&M - 8302-2 69 [in_us] Bdy height pulse rate E&M - 8867-4 76 /min Heart rate temperature E&M 97.2 [degF] Body temperature weight E&M - 3141-9 250 [lb_av] Weight Measured Diagnostic Results Date Name Value Unit Range Description Lab Report: UADIP (AUTO) - Chemistry protein, total urine random Negative mg/dL Negative RBC, urine, dipstick Negative Negative Lab Report: UADIP (AUTO) - Urinalysis urobilinogen, urine, semiquantitative (dipstick) 0.2 Normal leukocyte esterase, urine, by dipstick Negative Negative nitrite, urine, semiquantitative Negative Negative glucose, urine, semiquantitative Negative Negative ketones, urine, by test strip Negative Negative bilirubin, urine Negative Negative urine color Yellow Colorless;Lightyellow;Straw;Yellow appearance, urine Clear Clear specific gravity, urine 1.025 1.000-1.030 pH, urine, semiquantitative 6.0 5.0-8.5 Office Visit: CN Uti /bladder infections - Chemistry RBC, urine, dipstick negative protein, total urine random negative mg/dL Office Visit: CN Uti /bladder infections - Urinalysis urinalysis, routine Clean Catch culture status No ketones, urine, by test strip negative bilirubin, urine negative glucose, urine, semiquantitative negative pH, urine, semiquantitative 5 specific gravity, urine 1.010 urine color yellow appearance, urine clear leukocyte esterase, urine, by dipstick negative nitrite, urine, semiquantitative negative urobilinogen, urine, semiquantitative (dipstick) negative protein, urine, semiquantitative (dipstick) negative Encounters Code Encounter Date Provider Facility CPT-69136 Level 3 New Patient 23:35:59 CDT Polina Nix MD [facility] CPT-21267 Level 3 Est. Patient 14:21:37 CDT Sharon Valdez APRN [facility]
--- OUTSIDE RECORDS SUMMARY | 2018-05-13 07:30 | XMS REPORT | Clinical Summary ---
Author Author Admin, [facility] Organization [facility] [employer] Address Unknown Phone Unavailable Allergies, Adverse Reactions, Alerts Allergy Name Reaction Description Start Date Severity Status Provider Allergies Unknown Conditions or Problems Problem Name Problem Code [...] TAB 1 tablet by mouth daily FLUCONAZOLE 85558585919 No Longer Active Sharon Valdez APRN Active NYSTATIN 479633 UNIT/GM POWD Apply to affected areas BID-TID NYSTATIN 29879103608 Active Sharon Valdez APRN Active VISION FORMULA TABS 1 tablet daily MULTIPLE VITAMINS-MINERALS 52492599626 Active Sharon Valdez APRN Active ADULT ASPIRIN EC LOW STRENGTH 81 MG TBEC Take 1 tablet daily ASPIRIN 25811181246 Active Sharon Valdez APRN Active ALPRAZOLAM 0.25 MG TABS Take 1 tablet TID as needed for anxiety ALPRAZOLAM 37985832561 Active Sharon Valdez APRN Active LEXAPRO 10 MG TABS 1 tablet daily ESCITALOPRAM OXALATE 30665539046 Active Sharon Valdez APRN Active LISINOPRIL 10 MG TABS Take 1 tablet daily LISINOPRIL 52552566701 Active Sharon Valdez APRN Active DIFLUCAN 100 MG TAB 1 tablet by mouth daily DIFLUCAN 100 MG TAB 234143 FLUCONAZOLE Inactive Advance Directives Directive Description Start Date PERMISSION TO SHARE Encounters Code Encounter Date Provider Facility CPT-23772 Level 3 New Patient 23:35:59 CDT Polina Nix MD [facility] CPT-88776 Level 3 Est. Patient 14:21:37 CDT Sharon Valdez APRN [facility]
--- OUTSIDE RECORDS SUMMARY | 2018-05-13 07:30 | XMS REPORT | Clinical Summary ---
Author Author Admin, [facility] Organization [facility] [employer] Address Unknown Phone Unavailable Allergies, Adverse Reactions, [...] TAB 1 tablet by mouth daily FLUCONAZOLE 27865531377 No Longer Active Sharon Valdez APRN Active NYSTATIN 065436 UNIT/GM POWD Apply to affected areas BID-TID NYSTATIN 94771307935 Active Sharon Valdez APRN Active VISION FORMULA TABS 1 tablet daily MULTIPLE VITAMINS-MINERALS 77056451805 Active Sharon Valdez APRN Active ADULT ASPIRIN EC LOW STRENGTH 81 MG TBEC Take 1 tablet daily ASPIRIN 99051764662 Active Sharon Valdez APRN Active ALPRAZOLAM 0.25 MG TABS Take 1 tablet TID as needed for anxiety ALPRAZOLAM 98633387821 Active Sharon Valdez APRN Active LEXAPRO 10 MG TABS 1 tablet daily ESCITALOPRAM OXALATE 90874292539 Active Sharon Valdez APRN Active LISINOPRIL 10 MG TABS Take 1 tablet daily LISINOPRIL 19881675032 Active Sharon Valdez APRN Active DIFLUCAN 100 MG TAB 1 tablet by mouth daily DIFLUCAN 100 MG TAB 455785 FLUCONAZOLE Inactive Advance Directives Directive Description Start [...] Results Date Name Value Unit Range Description Office Visit: CN Uti /bladder infections - [...] negative Encounters Code Encounter Date Provider Facility CPT-82309 Level 3 New Patient 23:35:59 CDT Polina Nix MD [facility] CPT-05570 Level 3 Est. Patient 14:21:37 CDT Sharon Valdez APRN [facility]
--- OUTSIDE RECORDS SUMMARY | 2018-05-13 07:30 | XMS REPORT | Clinical Summary ---
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 Unspecified essential hypertension TINEA CRURIS 110.3 Active Sharon Valdez WEBBING WEAVER Dermatophytosis of groin and perianal area SUPRAPUBIC PAIN 789.09 Active Sharon Valdez WEBBING WEAVER Abdominal pain, other specified site; multiple sites VAGINAL PRURITUS 698.1 Active Sharon Valdez APRN Pruritus of genital organs Dysuria Active Polina Nix MD Dysuria Interstitial Cystitis Active Polina Nix MD Chronic interstitial cystitis Kidney stone 592.0 Active Cami Mayer COMPOSITION 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 ESTRADIOL 62698886962 Active Polina Nix MD Active FLUCONAZOLE 100 MG ORAL TABLET 1 by mouth once a week. FLUCONAZOLE 57205784195 Active Polina Nix MD Active ALPRAZOLAM 0.25 MG ORAL TABLET Take 1 tablet TID as needed for anxiety 03/04 ALPRAZOLAM 19237840537 No Longer Active Polina Nix MD Active ADULT ASPIRIN EC LOW STRENGTH 81 MG ORAL TABLET DELAYED RELEASE Take 1 tablet daily ASPIRIN 00856161230 No Longer Active Polina Nix MD Active VISION FORMULA TABS 1 tablet daily MULTIPLE VITAMINS- MINERALS 82863712468 No Longer Active Polina Nix MD Active NYSTATIN 804450 UNIT/GM EXTERNAL POWDER Apply to affected areas BID-TID 03/04 NYSTATIN 98992418761 No Longer Active Polina Nix MD Active LEXAPRO 10 MG ORAL TABLET 1 tablet daily ESCITALOPRAM OXALATE 91111285771 No Longer Active Polina Nix MD Active LISINOPRIL 10 MG ORAL TABLET Take 1 tablet daily LISINOPRIL 75256681649 No Longer Active Polina Nix MD Active DIFLUCAN 100 MG ORAL TABLET 1 tablet by mouth daily FLUCONAZOLE 69809298295 No Longer Active Sharon Valdez APRN Active LISINOPRIL 10 MG ORAL TABLET Take 1 tablet daily LISINOPRIL 10 MG ORAL TABLET 089997 LISINOPRIL Inactive LEXAPRO 10 MG ORAL TABLET 1 tablet daily LEXAPRO 10 MG ORAL TABLET 410019 ESCITALOPRAM OXALATE Inactive NYSTATIN 956520 UNIT/GM EXTERNAL POWDER Apply to affected areas BID-TID 03/04 NYSTATIN 014874 UNIT/GM EXTERNAL POWDER 371666 NYSTATIN Inactive VISION FORMULA TABS 1 tablet daily VISION FORMULA TABS MULTIPLE VITAMINS-MINERALS Inactive ADULT ASPIRIN EC LOW STRENGTH 81 MG ORAL TABLET DELAYED RELEASE Take 1 tablet daily ADULT ASPIRIN EC LOW STRENGTH 81 MG ORAL TABLET DELAYED RELEASE 278290 ASPIRIN Inactive ALPRAZOLAM 0.25 MG ORAL TABLET Take 1 tablet TID as needed for anxiety 03/04 ALPRAZOLAM 0.25 MG ORAL TABLET 214486 ALPRAZOLAM Inactive DIFLUCAN 100 MG ORAL TABLET 1 tablet by mouth daily DIFLUCAN 100 MG ORAL TABLET 251285 FLUCONAZOLE Inactive Advance Directives Directive Description Start Date PERMISSION TO SHARE Vital Signs Date Name Value Unit Range Description blood pressure, diastolic 90 mm[Hg] BP farah blood pressure, systolic 140 mm[Hg] BP sys pulse rate E&M 66 /min Heart rate temperature E&M 97.5 [degF] Body temperature weight E&M 220 [lb_av] Weight Measured Diagnostic Results Date Name Value Unit Range Description Office Visit: Follow up bladder spasms - [...] negative Encounters Code Encounter Date Provider Facility CPT-10078 Level 3 Est. 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 Patient 14:21:37 CDT Sharon Valdez APRN [facility] Procedures Code Procedure Name Date Entry Date Standard Description CPT-94957 Abdomen, 1 view 09:10:33 SOCIAL SERVICES ASSISTANT CPT-41837 UA Auto Dip only - LAB USE ONLY 17:23:43 CDT
--- OUTSIDE RECORDS SUMMARY | 2018-05-13 07:30 | XMS REPORT | Clinical Summary ---
Author Author Admin, [facility] Organization [facility] [employer] Address Unknown Phone Unavailable Allergies, Adverse Reactions, [...] TAB 1 tablet by mouth daily FLUCONAZOLE 08817145102 No Longer Active Sharon Valdez APRN Active NYSTATIN 333834 UNIT/GM POWD Apply to affected areas BID-TID NYSTATIN 19058968427 Active Sharon Valdez APRN Active VISION FORMULA TABS 1 tablet daily MULTIPLE VITAMINS-MINERALS 77099326346 Active Sharon Valdez APRN Active ADULT ASPIRIN EC LOW STRENGTH 81 MG TBEC Take 1 tablet daily ASPIRIN 47059707511 Active Sharon Valdez APRN Active ALPRAZOLAM 0.25 MG TABS Take 1 tablet TID as needed for anxiety ALPRAZOLAM 06201657547 Active Sharon Valdez APRN Active LEXAPRO 10 MG TABS 1 tablet daily ESCITALOPRAM OXALATE 18696989165 Active Sharon Valdez APRN Active LISINOPRIL 10 MG TABS Take 1 tablet daily LISINOPRIL 61694633375 Active Sharon Valdez APRN Active DIFLUCAN 100 MG TAB 1 tablet by mouth daily DIFLUCAN 100 MG TAB 983298 FLUCONAZOLE Inactive Advance Directives Directive Description Start [...] negative Encounters Code Encounter Date Provider Facility CPT-13488 Level 3 New Patient 23:35:59 CDT Polina Nix MD [facility] CPT-30971 Level 3 Est. Patient 14:21:37 CDT Sharon Valdez APRN [facility]
--- OUTSIDE RECORDS SUMMARY | 2018-05-13 07:30 | XMS REPORT | Clinical Summary ---
Author Author Admin, [facility] Organization [facility] [employer] Address Unknown Phone Unavailable Allergies, Adverse Reactions, [...] TAB 1 tablet by mouth daily FLUCONAZOLE 18418069580 No Longer Active Sharon Valdez APRN Active NYSTATIN 457084 UNIT/GM POWD Apply to affected areas BID-TID NYSTATIN 91115898205 Active Sharon Valdez APRN Active VISION FORMULA TABS 1 tablet daily MULTIPLE VITAMINS-MINERALS 72593489785 Active Sharon Valdez APRN Active ADULT ASPIRIN EC LOW STRENGTH 81 MG TBEC Take 1 tablet daily ASPIRIN 50484350884 Active Sharon Valdez APRN Active ALPRAZOLAM 0.25 MG TABS Take 1 tablet TID as needed for anxiety ALPRAZOLAM 74573607692 Active Sharon Valdez APRN Active LEXAPRO 10 MG TABS 1 tablet daily ESCITALOPRAM OXALATE 68152539533 Active Sharon Valdez APRN Active LISINOPRIL 10 MG TABS Take 1 tablet daily LISINOPRIL 74520451619 Active Sharon Valdez APRN Active DIFLUCAN 100 MG TAB 1 tablet by mouth daily DIFLUCAN 100 MG TAB 380753 FLUCONAZOLE Inactive Advance Directives Directive Description Start [...] negative Encounters Code Encounter Date Provider Facility CPT-80526 Level 3 New Patient 23:35:59 CDT Polina Nix MD [facility] CPT-42204 Level 3 Est. Patient 14:21:37 CDT Sharon Valdez APRN [facility] Procedures Code Procedure Name Date Entry Date Standard Description CPT-06515 UA Auto Dip only - LAB USE ONLY 17:23:43 CDT
--- OUTSIDE RECORDS SUMMARY | 2018-05-13 07:30 | XMS REPORT | Clinical Summary ---
Author Author Admin, [facility] Organization [facility] [employer] Address Unknown Phone Unavailable Allergies, Adverse Reactions, [...] Active Polina Nix MD Chronic interstitial cystitis Medication List Medication Instructions Start Date Stop Date Generic Name NDC Status Provider Patient Instruction ESTRADIOL 10 % CREAM Apply 0.25mg vaginally. ESTRADIOL 41077800608 Active Polina Nix MD Active FLUCONAZOLE 100 MG ORAL TABLET 1 by mouth once a week. FLUCONAZOLE 09884889618 Active Polina Nix MD Active ALPRAZOLAM 0.25 MG ORAL TABLET Take 1 tablet TID as needed for anxiety 03/04 ALPRAZOLAM 14443928273 No Longer Active Polina Nix MD Active ADULT ASPIRIN EC LOW STRENGTH 81 MG ORAL TABLET DELAYED RELEASE Take 1 tablet daily ASPIRIN 05913493890 No Longer Active Polina Nix MD Active VISION FORMULA TABS 1 tablet daily MULTIPLE VITAMINS- MINERALS 69376274518 No Longer Active Polina Nix MD Active NYSTATIN 853042 UNIT/GM EXTERNAL POWDER Apply to affected areas BID-TID 03/04 NYSTATIN 82885474213 No Longer Active Polina Nix MD Active LEXAPRO 10 MG ORAL TABLET 1 tablet daily ESCITALOPRAM OXALATE 81742663815 No Longer Active Polina Nix MD Active LISINOPRIL 10 MG ORAL TABLET Take 1 tablet daily LISINOPRIL 31701113192 No Longer Active Polina Nix MD Active DIFLUCAN 100 MG ORAL TABLET 1 tablet by mouth daily FLUCONAZOLE 57640341376 No Longer Active Sharon Valdez APRN Active LISINOPRIL 10 MG ORAL TABLET Take 1 tablet daily LISINOPRIL 10 MG ORAL TABLET 473839 LISINOPRIL Inactive LEXAPRO 10 MG ORAL TABLET 1 tablet daily LEXAPRO 10 MG ORAL TABLET 614184 ESCITALOPRAM OXALATE Inactive NYSTATIN 763415 UNIT/GM EXTERNAL POWDER Apply to affected areas BID-TID 03/04 NYSTATIN 326866 UNIT/GM EXTERNAL POWDER 536035 NYSTATIN Inactive VISION FORMULA TABS 1 tablet daily VISION FORMULA TABS MULTIPLE VITAMINS-MINERALS Inactive ADULT ASPIRIN EC LOW STRENGTH 81 MG ORAL TABLET DELAYED RELEASE Take 1 tablet daily ADULT ASPIRIN EC LOW STRENGTH 81 MG ORAL TABLET DELAYED RELEASE 975927 ASPIRIN Inactive ALPRAZOLAM 0.25 MG ORAL TABLET Take 1 tablet TID as needed for anxiety 03/04 ALPRAZOLAM 0.25 MG ORAL TABLET 016258 ALPRAZOLAM Inactive DIFLUCAN 100 MG ORAL TABLET 1 tablet by mouth daily DIFLUCAN 100 MG ORAL TABLET 203642 FLUCONAZOLE Inactive Advance Directives Directive Description Start [...] negative Encounters Code Encounter Date Provider Facility CPT-11480 Level 3 Est. 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 Patient 14:21:37 CDT Sharon Valdez APRN [facility] -[facility] Procedures Code Procedure Name Date Entry Date Standard Description CPT-84851 UA Auto Dip only - LAB USE ONLY 17:23:43 CDT
--- OUTSIDE RECORDS SUMMARY | 2018-05-13 07:31 | XMS REPORT | Clinical Summary ---
Author Author Admin, [facility] Organization [employer] Address Unknown Phone Unavailable Allergies, Adverse Reactions, [...] APRN Pruritus of genital organs Dysuria Active Polnia Nix MD Dysuria Medication List Medication Instructions Start Date Stop Date Generic Name NDC Status Provider Patient Instruction DIFLUCAN 100 MG TAB 1 tablet by mouth daily FLUCONAZOLE 21875833138 No Longer Active Sharon Valdez APRN Active NYSTATIN 485221 UNIT/GM POWD Apply to affected areas BID-TID NYSTATIN 96415419443 Active Sharon Valdez APRN Active VISION FORMULA TABS 1 tablet daily MULTIPLE VITAMINS-MINERALS 00873718866 Active Sharon Valdez APRN Active ADULT ASPIRIN EC LOW STRENGTH 81 MG TBEC Take 1 tablet daily ASPIRIN 48324017183 Active Sharon Valdez APRN Active ALPRAZOLAM 0.25 MG TABS Take 1 tablet TID as needed for anxiety ALPRAZOLAM 16472517943 Active Sharon Valdez APRN Active LEXAPRO 10 MG TABS 1 tablet daily ESCITALOPRAM OXALATE 83983879737 Active Sharon Valdez APRN Active LISINOPRIL 10 MG TABS Take 1 tablet daily LISINOPRIL 63023123690 Active Sharon Valdez APRN Active DIFLUCAN 100 MG TAB 1 tablet by mouth daily DIFLUCAN 100 MG TAB 582767 FLUCONAZOLE Inactive Advance Directives Directive Description Start [...] negative Encounters Code Encounter Date Provider Facility CPT-18666 Level 3 New Patient 23:35:59 CDT Polina Nix MD [facility] CPT-92459 Level 3 Est. Patient 14:21:37 CDT Sharon Valdez APRN [facility]
--- OUTSIDE RECORDS SUMMARY | 2018-05-13 07:31 | XMS REPORT | Clinical Summary ---
Author Author Admin, [facility] Organization [facility] Address Unknown Phone Unavailable Allergies, Adverse Reactions, Alerts Allergy Name Reaction Description Start Date Severity Status Provider No Known Allergies Nomra Elder Conditions or Problems Problem Name Problem [...] 10 % CREAM Apply 0.25mg vaginally. ESTRADIOL 12553501147 Active Polina Nix MD Active FLUCONAZOLE 100 MG ORAL TABLET 1 by mouth once a week. FLUCONAZOLE 25780527933 Active Polina Nix MD Active ALPRAZOLAM 0.25 MG ORAL TABLET Take 1 tablet TID as needed for anxiety 03/04 ALPRAZOLAM 21700977825 No Longer Active Polina Nix MD Active ADULT ASPIRIN EC LOW STRENGTH 81 MG ORAL TABLET DELAYED RELEASE Take 1 tablet daily ASPIRIN 28913199665 No Longer Active Polina Nix MD Active VISION FORMULA TABS 1 tablet daily MULTIPLE VITAMINS- MINERALS 66592054108 No Longer Active Polina Nix MD Active NYSTATIN 228233 UNIT/GM EXTERNAL POWDER Apply to affected areas BID-TID 03/04 NYSTATIN 18821053145 No Longer Active Polina Nix MD Active LEXAPRO 10 MG ORAL TABLET 1 tablet daily ESCITALOPRAM OXALATE 54901219916 No Longer Active Polina Nix MD Active LISINOPRIL 10 MG ORAL TABLET Take 1 tablet daily LISINOPRIL 99218203072 No Longer Active Polina Nix MD Active DIFLUCAN 100 MG ORAL TABLET 1 tablet by mouth daily FLUCONAZOLE 78072060527 No Longer Active Sharon Valdez APRN Active LISINOPRIL 10 MG ORAL TABLET Take 1 tablet daily LISINOPRIL 10 MG ORAL TABLET 939388 LISINOPRIL Inactive LEXAPRO 10 MG ORAL TABLET 1 tablet daily LEXAPRO 10 MG ORAL TABLET 317571 ESCITALOPRAM OXALATE Inactive NYSTATIN 183476 UNIT/GM EXTERNAL POWDER Apply to affected areas BID-TID 03/04 NYSTATIN 562760 UNIT/GM EXTERNAL POWDER 695022 NYSTATIN Inactive VISION FORMULA TABS 1 tablet daily VISION FORMULA TABS MULTIPLE VITAMINS-MINERALS Inactive ADULT ASPIRIN EC LOW STRENGTH 81 MG ORAL TABLET DELAYED RELEASE Take 1 tablet daily ADULT ASPIRIN EC LOW STRENGTH 81 MG ORAL TABLET DELAYED RELEASE 266890 ASPIRIN Inactive ALPRAZOLAM 0.25 MG ORAL TABLET Take 1 tablet TID as needed for anxiety 03/04 ALPRAZOLAM 0.25 MG ORAL TABLET 344123 ALPRAZOLAM Inactive DIFLUCAN 100 MG ORAL TABLET 1 tablet by mouth daily DIFLUCAN 100 MG ORAL TABLET 497063 FLUCONAZOLE Inactive Advance Directives Directive Description Start [...] negative Encounters Code Encounter Date Provider Facility CPT-43118 Level 3 Est. 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 Patient 14:21:37 CDT Sharon Valdez APRN [facility] -[facility] Procedures Code Procedure Name Date Entry Date Standard Description CPT-46281 UA Auto Dip only - LAB USE ONLY 17:23:43 CDT
--- OUTSIDE RECORDS SUMMARY | 2018-05-13 07:31 | XMS REPORT | Clinical Summary ---
Author Author Admin, [facility] Organization [facility] Address Unknown Phone Unavailable Allergies, Adverse [...] 10 % CREAM Apply 0.25mg vaginally. ESTRADIOL 82294046776 Active Polina Nix MD Active FLUCONAZOLE 100 MG ORAL TABLET 1 by mouth once a week. FLUCONAZOLE 72700102119 Active Polina Nix MD Active ALPRAZOLAM 0.25 MG ORAL TABLET Take 1 tablet TID as needed for anxiety 03/04 ALPRAZOLAM 58449124292 No Longer Active Polina Nix MD Active ADULT ASPIRIN EC LOW STRENGTH 81 MG ORAL TABLET DELAYED RELEASE Take 1 tablet daily ASPIRIN 83463212655 No Longer Active Polina Nix MD Active VISION FORMULA TABS 1 tablet daily MULTIPLE VITAMINS- MINERALS 43639047292 No Longer Active Polina Nix MD Active NYSTATIN 604542 UNIT/GM EXTERNAL POWDER Apply to affected areas BID-TID 03/04 NYSTATIN 32219670124 No Longer Active Polina Nix MD Active LEXAPRO 10 MG ORAL TABLET 1 tablet daily ESCITALOPRAM OXALATE 15432338582 No Longer Active Polina Nix MD Active LISINOPRIL 10 MG ORAL TABLET Take 1 tablet daily LISINOPRIL 60949530711 No Longer Active Polina Nix MD Active DIFLUCAN 100 MG ORAL TABLET 1 tablet by mouth daily FLUCONAZOLE 42886275413 No Longer Active Sharon Valedz APRN Active LISINOPRIL 10 MG ORAL TABLET Take 1 tablet daily LISINOPRIL 10 MG ORAL TABLET 876032 LISINOPRIL Inactive LEXAPRO 10 MG ORAL TABLET 1 tablet daily LEXAPRO 10 MG ORAL TABLET 813003 ESCITALOPRAM OXALATE Inactive NYSTATIN 345606 UNIT/GM EXTERNAL POWDER Apply to affected areas BID-TID 03/04 NYSTATIN 605654 UNIT/GM EXTERNAL POWDER 830588 NYSTATIN Inactive VISION FORMULA TABS 1 tablet daily VISION FORMULA TABS MULTIPLE VITAMINS-MINERALS Inactive ADULT ASPIRIN EC LOW STRENGTH 81 MG ORAL TABLET DELAYED RELEASE Take 1 tablet daily ADULT ASPIRIN EC LOW STRENGTH 81 MG ORAL TABLET DELAYED RELEASE 579907 ASPIRIN Inactive ALPRAZOLAM 0.25 MG ORAL TABLET Take 1 tablet TID as needed for anxiety 03/04 ALPRAZOLAM 0.25 MG ORAL TABLET 411096 ALPRAZOLAM Inactive DIFLUCAN 100 MG ORAL TABLET 1 tablet by mouth daily DIFLUCAN 100 MG ORAL TABLET 737652 FLUCONAZOLE Inactive Advance Directives Directive Description Start [...] negative Encounters Code Encounter Date Provider Facility CPT-19599 Level 3 Est. 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 Patient 14:21:37 CDT Sharon Valdez APRN [facility] Procedures Code Procedure Name Date Entry Date Standard Description CPT-70177 UA Auto Dip only - LAB USE ONLY 17:23:43 CDT
--- OUTSIDE RECORDS SUMMARY | 2018-05-13 07:31 | XMS REPORT | Clinical Summary ---
Author Author Admin, [facility] Organization [email or web address] Address Unknown Phone Unavailable Allergies, Adverse Reactions, [...] TAB 1 tablet by mouth daily FLUCONAZOLE 07297207220 No Longer Active Sharon Valdez APRN Active NYSTATIN 322478 UNIT/GM POWD Apply to affected areas BID-TID NYSTATIN 85726588254 Active Sharon Valdez APRN Active VISION FORMULA TABS 1 tablet daily MULTIPLE VITAMINS-MINERALS 28211698540 Active Sharon Valdez APRN Active ADULT ASPIRIN EC LOW STRENGTH 81 MG TBEC Take 1 tablet daily ASPIRIN 90913396467 Active Sharon Valdez APRN Active ALPRAZOLAM 0.25 MG TABS Take 1 tablet TID as needed for anxiety ALPRAZOLAM 38157939915 Active Sharon Valdez APRN Active LEXAPRO 10 MG TABS 1 tablet daily ESCITALOPRAM OXALATE 94819638456 Active Sharon Valdez APRN Active LISINOPRIL 10 MG TABS Take 1 tablet daily LISINOPRIL 48403500973 Active Sharon Valdez APRN Active DIFLUCAN 100 MG TAB 1 tablet by mouth daily DIFLUCAN 100 MG TAB 232031 FLUCONAZOLE Inactive Advance Directives Directive Description Start [...] Description Lab Report: UADIP (AUTO) - Chemistry RBC, urine, dipstick Negative Negative protein, total urine random Negative mg/dL Negative Lab Report: UADIP (AUTO) - Urinalysis pH, urine, semiquantitative 6.0 5.0-8.5 specific gravity, urine 1.025 1.000-1.030 appearance, urine Clear Clear urine color Yellow Colorless;Lightyellow;Straw;Yellow urobilinogen, urine, semiquantitative (dipstick) 0.2 Normal leukocyte esterase, urine, by dipstick Negative Negative nitrite, urine, semiquantitative Negative Negative glucose, urine, semiquantitative Negative Negative ketones, urine, by test strip Negative Negative bilirubin, urine Negative Negative Office Visit: [facility] Uti /bladder infections - Chemistry protein, total urine random negative mg/dL RBC, urine, dipstick negative Office Visit: [facility] Uti /bladder infections - Urinalysis ketones, urine, by test strip negative bilirubin, urine negative glucose, urine, semiquantitative negative pH, urine, semiquantitative 5 specific gravity, urine 1.010 urine color yellow appearance, urine clear leukocyte esterase, urine, by dipstick negative nitrite, urine, semiquantitative negative urobilinogen, urine, semiquantitative (dipstick) negative protein, urine, semiquantitative (dipstick) negative urinalysis, routine Clean Catch culture status No Encounters Code Encounter Date Provider Facility CPT-82693 Level 3 New Patient 23:35:59 CDT Polina Nix MD [facility] CPT-08392 Level 3 Est. Patient 14:21:37 CDT Sharon Valdez APRN [facility] Procedures Code Procedure Name Date Entry Date Standard Description CPT-11897 UA Auto Dip only - LAB USE ONLY 17:23:43 CDT
--- OUTSIDE RECORDS SUMMARY | 2018-05-13 07:32 | XMS REPORT | Clinical Summary ---
Author Author Admin, [facility] Organization [facility] Address Unknown Phone Unavailable Allergies, Adverse Reactions, Alerts Allergy Name Reaction Description Start Date Severity Status Provider No Known Allergies Norma Elder Conditions or Problems Problem Name Problem Code Onset Date Status Entry Date Provider Comment Standard Description Annotate HYPERTENSION 401.9 Active Sharon Valdez CAMPAIGN MARKETING SPECIALIST Unspecified essential hypertension TINEA CRURIS 110.3 Active Sharon Valdez CAMPAIGN MARKETING SPECIALIST Dermatophytosis of groin and perianal area SUPRAPUBIC PAIN 789.09 Active Sharon Valdez CAMPAIGN MARKETING SPECIALIST Abdominal pain, other specified site; multiple sites VAGINAL PRURITUS 698.1 Active Sharon Valdez APRN Pruritus of genital organs Dysuria Active Polina Nix MD Dysuria Interstitial Cystitis Active Polina Nix MD Chronic interstitial cystitis Kidney stone 592.0 Active Cami Mayer AVIAN KEEPER Calculus of kidney Flank Pain Active Polina Nix MD Abdominal pain, unspecified site Medication List Medication Instructions Start Date Stop Date Generic Name NDC Status Provider Patient Instruction ESTRADIOL 10 % CREAM Apply 0.25mg vaginally. ESTRADIOL 44052267032 Active Polina Nix MD Active FLUCONAZOLE 100 MG ORAL TABLET 1 by mouth once a week. FLUCONAZOLE 00503024913 Active Polina Nix MD Active ALPRAZOLAM 0.25 MG ORAL TABLET Take 1 tablet TID as needed for anxiety 03/04 ALPRAZOLAM 39166553049 No Longer Active Polina Nix MD Active ADULT ASPIRIN EC LOW STRENGTH 81 MG ORAL TABLET DELAYED RELEASE Take 1 tablet daily ASPIRIN 48994156705 No Longer Active Polina Nix MD Active VISION FORMULA TABS 1 tablet daily MULTIPLE VITAMINS- MINERALS 46080495592 No Longer Active Polina Nix MD Active NYSTATIN 806045 UNIT/GM EXTERNAL POWDER Apply to affected areas BID-TID 03/04 NYSTATIN 51703259383 No Longer Active Polina Nix MD Active LEXAPRO 10 MG ORAL TABLET 1 tablet daily ESCITALOPRAM OXALATE 15482518978 No Longer Active Polina Nix MD Active LISINOPRIL 10 MG ORAL TABLET Take 1 tablet daily LISINOPRIL 12468348239 No Longer Active Polina Nix MD Active DIFLUCAN 100 MG ORAL TABLET 1 tablet by mouth daily FLUCONAZOLE 92520743187 No Longer Active Sharon Valdez APRN Active LISINOPRIL 10 MG ORAL TABLET Take 1 tablet daily LISINOPRIL 10 MG ORAL TABLET 253801 LISINOPRIL Inactive LEXAPRO 10 MG ORAL TABLET 1 tablet daily LEXAPRO 10 MG ORAL TABLET 051080 ESCITALOPRAM OXALATE Inactive NYSTATIN 414586 UNIT/GM EXTERNAL POWDER Apply to affected areas BID-TID 03/04 NYSTATIN 068534 UNIT/GM EXTERNAL POWDER 945620 NYSTATIN Inactive VISION FORMULA TABS 1 tablet daily VISION FORMULA TABS MULTIPLE VITAMINS-MINERALS Inactive ADULT ASPIRIN EC LOW STRENGTH 81 MG ORAL TABLET DELAYED RELEASE Take 1 tablet daily ADULT ASPIRIN EC LOW STRENGTH 81 MG ORAL TABLET DELAYED RELEASE 855063 ASPIRIN Inactive ALPRAZOLAM 0.25 MG ORAL TABLET Take 1 tablet TID as needed for anxiety 03/04 ALPRAZOLAM 0.25 MG ORAL TABLET 549291 ALPRAZOLAM Inactive DIFLUCAN 100 MG ORAL TABLET 1 tablet by mouth daily DIFLUCAN 100 MG ORAL TABLET 815706 FLUCONAZOLE Inactive Advance Directives Directive Description Start [...] negative Encounters Code Encounter Date Provider Facility CPT-36039 Level 3 Est. 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 Patient 16:08:46 CELLO TEACHER Polina Nix MD [facility] CPT-97430 Level 3 New Patient 23:35:59 CDT Polina Nix MD [facility] [place] CPT-74935 Level 3 Est. Patient 14:21:37 CDT Sharon Valdez APRN [facility] Procedures Code Procedure Name Date Entry Date Standard Description CPT-15228 Abdomen, 1 view 09:10:33 CELLO TEACHER CPT-84913 UA Auto Dip only - LAB USE ONLY 17:23:43 CDT
--- OUTSIDE RECORDS SUMMARY | 2018-05-13 07:32 | XMS REPORT | Clinical Summary ---
Author Author Admin, [facility] Organization [facility] Address Unknown Phone Unavailable Allergies, Adverse Reactions, Alerts Allergy Name Reaction Description Start Date Severity Status Provider No Known Allergies Norma Elder Conditions or Problems Problem Name Problem Code Onset Date Status Entry Date Provider Comment Standard Description Annotate HYPERTENSION 401.9 Active Sharon Valdez MISSION COMMANDER Unspecified essential hypertension TINEA CRURIS 110.3 Active Sharon Valdez MISSION COMMANDER Dermatophytosis of groin and perianal area SUPRAPUBIC PAIN 789.09 Active Sharon Valdez MISSION COMMANDER Abdominal pain, other specified site; multiple sites VAGINAL PRURITUS 698.1 Active Sharon Valdez APRN Pruritus of genital organs Dysuria Active Polina Nix MD Dysuria Interstitial Cystitis Active Polina Nix MD Chronic interstitial cystitis Kidney stone 592.0 Active Cami Mayer LABOR/EXCAVATOR Calculus of kidney Medication List Medication Instructions Start Date Stop Date Generic Name NDC Status Provider Patient Instruction ESTRADIOL 10 % CREAM Apply 0.25mg vaginally. ESTRADIOL 13651510090 Active Polina Nix MD Active FLUCONAZOLE 100 MG ORAL TABLET 1 by mouth once a week. FLUCONAZOLE 27645512625 Active Polina Nix MD Active ALPRAZOLAM 0.25 MG ORAL TABLET Take 1 tablet TID as needed for anxiety 03/04 ALPRAZOLAM 14691058127 No Longer Active Polina Nix MD Active ADULT ASPIRIN EC LOW STRENGTH 81 MG ORAL TABLET DELAYED RELEASE Take 1 tablet daily ASPIRIN 70086322385 No Longer Active Polina Nix MD Active VISION FORMULA TABS 1 tablet daily MULTIPLE VITAMINS- MINERALS 57845603373 No Longer Active Polina Nix MD Active NYSTATIN 550091 UNIT/GM EXTERNAL POWDER Apply to affected areas BID-TID 03/04 NYSTATIN 28232993637 No Longer Active Polina Nix MD Active LEXAPRO 10 MG ORAL TABLET 1 tablet daily ESCITALOPRAM OXALATE 33771255919 No Longer Active Polina Nix MD Active LISINOPRIL 10 MG ORAL TABLET Take 1 tablet daily LISINOPRIL 69515668912 No Longer Active Polina Nix MD Active DIFLUCAN 100 MG ORAL TABLET 1 tablet by mouth daily FLUCONAZOLE 26863892508 No Longer Active Sharon Valdez APRN Active LISINOPRIL 10 MG ORAL TABLET Take 1 tablet daily LISINOPRIL 10 MG ORAL TABLET 668114 LISINOPRIL Inactive LEXAPRO 10 MG ORAL TABLET 1 tablet daily LEXAPRO 10 MG ORAL TABLET 423817 ESCITALOPRAM OXALATE Inactive NYSTATIN 467745 UNIT/GM EXTERNAL POWDER Apply to affected areas BID-TID 03/04 NYSTATIN 839620 UNIT/GM EXTERNAL POWDER 679711 NYSTATIN Inactive VISION FORMULA TABS 1 tablet daily VISION FORMULA TABS MULTIPLE VITAMINS-MINERALS Inactive ADULT ASPIRIN EC LOW STRENGTH 81 MG ORAL TABLET DELAYED RELEASE Take 1 tablet daily ADULT ASPIRIN EC LOW STRENGTH 81 MG ORAL TABLET DELAYED RELEASE 331379 ASPIRIN Inactive ALPRAZOLAM 0.25 MG ORAL TABLET Take 1 tablet TID as needed for anxiety 03/04 ALPRAZOLAM 0.25 MG ORAL TABLET 839166 ALPRAZOLAM Inactive DIFLUCAN 100 MG ORAL TABLET 1 tablet by mouth daily DIFLUCAN 100 MG ORAL TABLET 190482 FLUCONAZOLE Inactive Advance Directives Directive Description Start [...] negative Encounters Code Encounter Date Provider Facility CPT-35317 Level 3 Est. Patient 16:08:46 SIDE PIECE COVERER Polina Nix MD [facility] CPT-35063 Level 3 New Patient 23:35:59 CDT Polina Nix MD [facility] [place] CPT-49792 Level 3 Est. Patient 14:21:37 CDT Sharon Valdez APRN [facility] Procedures Code Procedure Name Date Entry Date Standard Description CPT-63102 Abdomen, 1 view 09:10:33 SIDE PIECE COVERER CPT-15009 UA Auto Dip only - LAB USE ONLY 17:23:43 CDT
--- OUTSIDE RECORDS SUMMARY | 2018-05-13 07:32 | XMS REPORT | Clinical Summary ---
Author Author Admin, [facility] Organization [employer] Address Unknown Phone Unavailable Allergies, Adverse Reactions, [...] multiple sites VAGINAL PRURITUS 698.1 Active Sharon Vadlez APRN Pruritus of genital organs Dysuria Active Polina Nix MD Dysuria Medication List Medication Instructions Start Date Stop Date Generic Name NDC Status Provider Patient Instruction DIFLUCAN 100 MG TAB 1 tablet by mouth daily FLUCONAZOLE 32491933787 No Longer Active Sharon Valdez APRN Active NYSTATIN 887625 UNIT/GM POWD Apply to affected areas BID-TID NYSTATIN 20590672339 Active Sharon Valdez APRN Active VISION FORMULA TABS 1 tablet daily MULTIPLE VITAMINS-MINERALS 71146050993 Active Sharon Valdez APRN Active ADULT ASPIRIN EC LOW STRENGTH 81 MG TBEC Take 1 tablet daily ASPIRIN 11055215924 Active Sharon Valdez APRN Active ALPRAZOLAM 0.25 MG TABS Take 1 tablet TID as needed for anxiety ALPRAZOLAM 84976117392 Active Sharon Valdez APRN Active LEXAPRO 10 MG TABS 1 tablet daily ESCITALOPRAM OXALATE 06558882488 Active Sharon Valdez APRN Active LISINOPRIL 10 MG TABS Take 1 tablet daily LISINOPRIL 35899024176 Active Sharon Valdez APRN Active DIFLUCAN 100 MG TAB 1 tablet by mouth daily DIFLUCAN 100 MG TAB 624111 FLUCONAZOLE Inactive Advance Directives Directive Description Start [...] negative Encounters Code Encounter Date Provider Facility CPT-81670 Level 3 New Patient 23:35:59 CDT Polina Nix MD [facility] CPT-54206 Level 3 Est. Patient 14:21:37 CDT Sharon Valdez APRN [facility] Procedures Code Procedure Name Date Entry Date Standard Description CPT-81846 UA Auto Dip only - LAB USE ONLY 17:23:43 CDT
--- OUTSIDE RECORDS SUMMARY | 2018-05-13 07:32 | XMS REPORT | Clinical Summary ---
Author Author Admin, [facility] Organization [facility] Address Unknown Phone Unavailable Allergies, Adverse Reactions, Alerts Allergy Name Reaction Description Start Date Severity Status Provider No Known Allergies Norma Elder Conditions or Problems Problem Name Problem Code Onset Date Status Entry Date Provider Comment Standard Description Annotate HYPERTENSION 401.9 Active Sharon Valdez VISUAL BASIC .NET DEVELOPER Unspecified essential hypertension TINEA CRURIS 110.3 Active Sharon Valdez VISUAL BASIC .NET DEVELOPER Dermatophytosis of groin and perianal area SUPRAPUBIC PAIN 789.09 Active Sharon Valdez VISUAL BASIC .NET DEVELOPER Abdominal pain, other specified site; multiple sites VAGINAL PRURITUS 698.1 Active Sharon Valdez APRN Pruritus of genital organs Dysuria Active Polina Nix MD Dysuria Interstitial Cystitis Active Polina Nix MD Chronic interstitial cystitis Kidney stone 592.0 Active Cami Mayer LOBBY CONCIERGE Calculus of kidney Flank Pain Active Polina Nix MD Abdominal pain, unspecified site Medication List Medication Instructions Start Date Stop Date Generic Name NDC Status Provider Patient Instruction ESTRADIOL 10 % CREAM Apply 0.25mg vaginally. ESTRADIOL 61386386481 Active Polina Nix MD Active FLUCONAZOLE 100 MG ORAL TABLET 1 by mouth once a week. FLUCONAZOLE 13448175582 Active Polina Nix MD Active ALPRAZOLAM 0.25 MG ORAL TABLET Take 1 tablet TID as needed for anxiety 03/04 ALPRAZOLAM 06400507228 No Longer Active Polina Nix MD Active ADULT ASPIRIN EC LOW STRENGTH 81 MG ORAL TABLET DELAYED RELEASE Take 1 tablet daily ASPIRIN 42948782926 No Longer Active Polina Nix MD Active VISION FORMULA TABS 1 tablet daily MULTIPLE VITAMINS- MINERALS 12592345523 No Longer Active Polina Nix MD Active NYSTATIN 839069 UNIT/GM EXTERNAL POWDER Apply to affected areas BID-TID 03/04 NYSTATIN 47137530761 No Longer Active Polina Nix MD Active LEXAPRO 10 MG ORAL TABLET 1 tablet daily ESCITALOPRAM OXALATE 38555515296 No Longer Active Polina Nix MD Active LISINOPRIL 10 MG ORAL TABLET Take 1 tablet daily LISINOPRIL 21343331501 No Longer Active Polina Nix MD Active DIFLUCAN 100 MG ORAL TABLET 1 tablet by mouth daily FLUCONAZOLE 94870926819 No Longer Active Sharon Valdez APRN Active LISINOPRIL 10 MG ORAL TABLET Take 1 tablet daily LISINOPRIL 10 MG ORAL TABLET 591053 LISINOPRIL Inactive LEXAPRO 10 MG ORAL TABLET 1 tablet daily LEXAPRO 10 MG ORAL TABLET 718589 ESCITALOPRAM OXALATE Inactive NYSTATIN 710242 UNIT/GM EXTERNAL POWDER Apply to affected areas BID-TID 03/04 NYSTATIN 855963 UNIT/GM EXTERNAL POWDER 517604 NYSTATIN Inactive VISION FORMULA TABS 1 tablet daily VISION FORMULA TABS MULTIPLE VITAMINS-MINERALS Inactive ADULT ASPIRIN EC LOW STRENGTH 81 MG ORAL TABLET DELAYED RELEASE Take 1 tablet daily ADULT ASPIRIN EC LOW STRENGTH 81 MG ORAL TABLET DELAYED RELEASE 962329 ASPIRIN Inactive ALPRAZOLAM 0.25 MG ORAL TABLET Take 1 tablet TID as needed for anxiety 03/04 ALPRAZOLAM 0.25 MG ORAL TABLET 800162 ALPRAZOLAM Inactive DIFLUCAN 100 MG ORAL TABLET 1 tablet by mouth daily DIFLUCAN 100 MG ORAL TABLET 641531 FLUCONAZOLE Inactive Advance Directives Directive Description Start [...] negative Encounters Code Encounter Date Provider Facility CPT-96806 Level 3 Est. Patient 11:08:28 CHASER APPRENTICE Polina Nix MD [facility] CPT-19490 Level 3 New Patient 11:08:12 CHASER APPRENTICE Polina Nix MD [facility] CPT-16483 Level 3 Est. Patient 16:08:46 CHASER APPRENTICE Polina Nix MD [facility] CPT-47753 Level 3 New Patient 23:35:59 CDT Polina Nix MD [facility] [place] CPT-76835 Level 3 Est. Patient 14:21:37 CDT Sharon Valdez APRN [facility] Procedures Code Procedure Name Date Entry Date Standard Description CPT-72193 Abdomen, 1 view 09:10:33 CHASER APPRENTICE CPT-59086 UA Auto Dip only - LAB USE ONLY 17:23:43 CDT
--- OUTSIDE RECORDS SUMMARY | 2018-05-13 07:33 | XMS REPORT | Clinical Summary ---
Author Author Admin, 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 ESTRADIOL 75440281608 Active Polina Nix MD Active FLUCONAZOLE 100 MG ORAL TABLET 1 by mouth once a week. FLUCONAZOLE 83549484170 Active Polina Nix MD Active ALPRAZOLAM 0.25 MG ORAL TABLET Take 1 tablet TID as needed for anxiety 03/04 ALPRAZOLAM 12002386254 No Longer Active Polina Nix MD Active ADULT ASPIRIN EC LOW STRENGTH 81 MG ORAL TABLET DELAYED RELEASE Take 1 tablet daily ASPIRIN 00480355611 No Longer Active Polina Nix MD Active VISION FORMULA TABS 1 tablet daily MULTIPLE VITAMINS- MINERALS 69625469871 No Longer Active Polina Nix MD Active NYSTATIN 467011 UNIT/GM EXTERNAL POWDER Apply to affected areas BID-TID 03/04 NYSTATIN 12978885665 No Longer Active Polina Nix MD Active LEXAPRO 10 MG ORAL TABLET 1 tablet daily ESCITALOPRAM OXALATE 59682106141 No Longer Active Polina Nix MD Active LISINOPRIL 10 MG ORAL TABLET Take 1 tablet daily LISINOPRIL 05642334944 No Longer Active Polina Nix MD Active DIFLUCAN 100 MG ORAL TABLET 1 tablet by mouth daily FLUCONAZOLE 62121853667 No Longer Active Sharon Valdez APRN Active LISINOPRIL 10 MG ORAL TABLET Take 1 tablet daily LISINOPRIL 10 MG ORAL TABLET 919879 LISINOPRIL Inactive LEXAPRO 10 MG ORAL TABLET 1 tablet daily LEXAPRO 10 MG ORAL TABLET 842836 ESCITALOPRAM OXALATE Inactive NYSTATIN 485491 UNIT/GM EXTERNAL POWDER Apply to affected areas BID-TID 03/04 NYSTATIN 099792 UNIT/GM EXTERNAL POWDER 847037 NYSTATIN Inactive VISION FORMULA TABS 1 tablet daily VISION FORMULA TABS MULTIPLE VITAMINS-MINERALS Inactive ADULT ASPIRIN EC LOW STRENGTH 81 MG ORAL TABLET DELAYED RELEASE Take 1 tablet daily ADULT ASPIRIN EC LOW STRENGTH 81 MG ORAL TABLET DELAYED RELEASE 412603 ASPIRIN Inactive ALPRAZOLAM 0.25 MG ORAL TABLET Take 1 tablet TID as needed for anxiety 03/04 ALPRAZOLAM 0.25 MG ORAL TABLET 136366 ALPRAZOLAM Inactive DIFLUCAN 100 MG ORAL TABLET 1 tablet by mouth daily DIFLUCAN 100 MG ORAL TABLET 800987 FLUCONAZOLE Inactive Advance Directives Directive Description Start [...] negative Encounters Code Encounter Date Provider Facility CPT-97680 Level 3 Est. 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 Patient 16:08:46 ARBORICULTURE INSTRUCTOR Polina Nix MD [facility] CPT-84706 Level 3 New Patient 23:35:59 CDT Polina Nix MD [facility] [place] CPT-55630 Level 3 Est. Patient 14:21:37 CDT Sharon Valdez APRN [facility] Procedures Code Procedure Name Date Entry Date Standard Description CPT-01314 Abdomen, 1 view 09:10:33 ARBORICULTURE INSTRUCTOR CPT-80440 UA Auto Dip only - LAB USE ONLY 17:23:43 CDT
--- OUTSIDE RECORDS SUMMARY | 2018-05-13 07:34 | XMS REPORT ---
Author Author [facility] Organization [facility] Address [address] [place] [id number] Phone [phone] Care Team Providers Care Morals Squad Police Officer Name Role Phone WHITLEY NIELSEN, JACY PP [phone] Summary purpose TRANSITION OF CARE AUTO GENERATION Chief Complaint and Reason for Visit No authorized Reason for Visit (Admitting Diagnosis) is available for this visit. Problem list No authorized problems tracked for continuity of care are available for this visit. Encounters No authorized problems tracked for encounter diagnoses are available for this visit. Medications No home medications recorded for this patient visit Allergies, [...]
--- OUTSIDE RECORDS SUMMARY | 2018-05-13 07:34 | XMS REPORT | Continuity of Care Document ---
Demographics x Preferred Language Unknown Marital Status Unknown Anglican Affiliation Unknown Race Unknown Ethnic Group Unknown Author Author [facility] Organization [facility] Address Unknown Phone Unavailable Allergies Active Description Code Type Severity Reaction Onset Reported/Identified Relationship to Patient Clinical Status Yes No known drug allergies [id number] ND N/A N/A Yes NKDA N/A N/A Yes No known allergies Drug N/A N/A Yes No Known Allergies Miscellaneous Allergy N/A N/A 09/19/2017 Yes No Known Drug Allergies [id number] Drug Allergy Unknown N/A 05/06/2018 Medications Medication Packaging Start Date Stop Date Route Dosage Sig CYCLOBENZAPRINE HCL ORAL 201512/11/2015 ORAL 3030 3 times a day VERSED 0.5&Vial 09/21/2017 09/21/2017 Intravenous 1&mg PRN & ANCEF 2&Vial 09/21/2017 09/28/2017 Intravenous 2&gm PRN& LR 1000 ML 1&Bag 09/21/2017 09/21/2017 Intravenous 1000&mL C&0611 SUBLIMAZE 0.5&Ampule 09/21/2017 09/21/2017 Intravenous 50&mcg PRN& ZOFRAN 1&Vial 09/21/2017 10/21/2017 Intravenous 4&mg PRN& ANCEF 1&Vial 09/21/2017 09/22/2017 Intravenous 1&gm Once& 0743 NORMAL SALINE 0.3&Syringe 201710/21/2017 Intravenous 3&mL BID&0900,2100 NORMAL SALINE 0.6&Syringe 201710/21/2017 Intravenous 3&mL PRN& MILK OF MAGNESIA 1&Suspension 09/2110/21/2017 Oral 30&mL PRN& MORPHINE 1&Syringe 09/21/2017 09/28/2017 Intravenous 4&mg PRN& DULCOLAX 1&Suppository 09/21/2017 10/21/2017 Rectal 10&mg PRN& PHENERGAN 1&Tablet 09/21/2017 10/21/2017 Oral 25&mg PRN& ZOFRAN 1&Tablet 09/21/2017 10/21/2017 Oral 4&mg PRN& REGLAN 1&Tablet 09/21/2017 10/21/2017 Oral 10&mg PRN& ATIVAN 1&Tablet 09/21/2017 09/28/2017 Oral 0.5&mg PRN& NORCO; LORTAB 1&Tablet 09/21/2017 09/28/2017 Oral 1&Tablet(s) PRN& COLACE 1&Capsule 09/21/2017 10/21/2017 Oral 100&mg BID& 0900,2100 BENADRYL 1&Capsule 09/21/2017 10/21/2017 Oral 25&mg PRN& BENADRYL 0.5&Vial 09/21/2017 10/21/2017 Intravenous 25&mg PRN& VALIUM 1&Tablet 09/21/2017 09/28/2017 Oral 5&mg PRN& FLEXERIL 1&Tablet 09/21/2017 10/21/2017 Oral 10&mg PRN& DULCOLAX 1&Tablet 09/21/2017 10/21/2017 Oral 5&mg PRN& TYLENOL; APAP 2&Tablet 09/21/2017 10/21/2017 Oral 650&mg PRN& NORMAL SALINE 1&Bag 09/21/2017 10/21/2017 Intravenous 1000&mL C&0743 PHENERGAN 1&Solution 09/21/2017 10/21/2017 Intravenous 25&mg PRN& REGLAN 1&Vial 09/21/2017 10/21/2017 Intravenous 10&mg PRN & LEVAQUIN 1&Bag 09/21/2017 10/21/2017 Intravenous 250&mg PRN& ZOFRAN 1&Vial 09/21/2017 09/21/2017 Intravenous 4&mg PRN& DILAUDID 0.25&Vial 09/21/2017 09/21/2017 Intravenous 0.5&mg PRN& ANCEF 1&Vial 09/21/2017 09/21/2017 Intravenous 1&gm Once& 1700 Problems Date Dx Coded Attending Type Code Diagnosis Diagnosed By 05/29/2017 Polina Britton MD N30.10 Interstitial Cystitis 07/05/2017 Polina Britton MD N20.0 Kidney stone 07/05/2017 Polina Britton MD R10.9 Flank Pain 08/24/2017 P M5442 Lumbago with sciatica, left side 09/03/2017 P M5442 Lumbago with sciatica, left side 09/22/2017 DOYLE WARD E78.5 Hyperlipidemia, unspecified 09/22/2017 DOYLE WARD F41.9 Anxiety disorder, unspecified 09/22/2017 DOYLE WARD M51.16 Intervertebral disc disorders with radiculopathy, lumbar region 09/22/2017 DOYLE WARD Z79.899 Other care home (current) drug therapy 05/06/2018 SHANON NIELSEN, SANTOSH Cordova Ot Z01.818 ENCOUNTER FOR OTHER PREPROCEDURAL EXAMIN 05/07/2018 SANTOSH CLAUDIO MD Ot Z01.818 ENCOUNTER FOR OTHER PREPROCEDURAL EXAMIN Procedures Code [place] [address] X-RAY EXAM OF RIBS/CHEST 10/18/2015 10310 X-RAY EXAM OF THORACIC SPINE 10/18/2015 62921 MRI CHEST SPINE W/O DYE 11/11/2015 Results There is no data. Encounters ACCT No. Visit Date/Time Discharge Status Pt. Type Provider Facility Loc./Unit Complaint [id number] 11/11/2015 12:48:00 11/11/2015 12:48:00 DIS Outpatient GLORIA AL [facility] RAD [id number] 10/18/2015 16:26:00 10/18/2015 16:26:00 DIS Outpatient GLORIA AL [facility] PANACE [id number] 03/12/2015 14:49:00 03/12/2015 14:49:00 DIS Outpatient JACY ARREAGA [facility] RAD [id number] 03/17/2014 07:23:00 03/17/2014 07:23:00 DIS Outpatient JACY ARREAGA [facility] RAD [id number] 09/21/2013 11:47:00 09/21/2013 15:25:00 DIS Emergency KAYLEE REYES [facility] EMR [id number] 09/21/2013 11:50:14 Document Registration [id number] 08/24/2017 09:04:00 Document Registration [id number] 03/01/2018 08:11:36 03/01/2018 23:59:59 CLS Outpatient PETER SAMANIEGO [id number] 12/12/2017 09:18:44 12/12/2017 23:59:59 CLS Outpatient PETER SAMANIEGO [place] [id number] 10/05/2017 09:53:15 10/05/2017 23:59:59 CLS Outpatient PETER SAMANIEGO [id number] 09/11/2017 11:22:46 09/11/2017 23:59:59 CLS Outpatient PETER SAMANIEGO [place] [id number] 08/20/2017 16:41:22 08/20/2017 23:59:59 CLS Outpatient PETER SAMANIEGO [id number] 04/15/2018 08:21:32 04/15/2018 23:59:59 DIS Outpatient YOAN FABIAN [facility] [id number] 04/10/2018 07:11:27 04/10/2018 23:59:59 DIS Outpatient PETER SAMANIEGO [facility] AV RAD screening [id number] 09/07/2017 14:02:01 09/07/2017 23:59:59 DIS Outpatient PETER SAMANIEGO [facility] AV RAD z01.818 pre op clearance for back sugery [id number] 07/06/2017 13:45:47 07/06/2017 23:59:59 DIS Outpatient SABRA BRITTON [facility] AV RAD left flank pain [id number] 06/06/2017 09:36:18 06/06/2017 14:10:00 DIS Outpatient SABRA BRITTON [facility] AV Surgery cystoscopy hydrodiation [id number] 03/26/2017 12:04:13 03/26/2017 23:59:59 DIS Outpatient Patt Tovar [facility] AV RAD screening [id number] 03/23/2017 11:19:06 03/23/2017 23:59:59 CLS Outpatient JACY ARRAEGA [facility] lab [id number] 03/23/2017 11:15:00 03/23/2017 23:59:59 DIS Outpatient JACY ARREAGA [facility] [id number] 03/01/2017 15:45:39 03/01/2017 23:59:59 DIS Outpatient Patt Tovar [facility] lab [id number] 03/01/2017 15:01:04 03/01/2017 23:59:59 DIS Outpatient Patt Tovar [facility] [id number] 12/06/2016 13:40:45 12/06/2016 23:59:59 CLS Outpatient ALIZA LO [facility] [id number] 10/02/2016 14:55:19 10/02/2016 23:59:59 CLS Outpatient ALIZA LO [facility] [id number] 10/02/2016 15:09:50 Document Registration [id number] 05/08/2018 07:56:01 ACT Unknown Boyd NIELSEN, Polina Valera [id number] 09/21/2017 05:58:00 09/22/2017 12:11:00 DIS Outpatient DOYLE WARD IP Left L3-4 microdiscectomy. Dx disc protrusion [id number] 01/28/2016 14:50:27 01/28/2016 14:50:27 Outpatient [facility] [id number] 05/06/2018 05:34:00 05/06/2018 13:25:00 DIS Outpatient SANTOSH CLAUDIO MD [facility] PREOP COLONOSCOPY [id number] 05/13/2018 08:30:00 PEN Preadmit SANTOSH CLAUDIO MD [facility] ENDO SCREENING
--- OUTSIDE RECORDS SUMMARY | 2018-05-13 07:34 | XMS REPORT ---
Author Author [facility] Medical Staff Organization [facility] Address [address] [place], [place] [address] Phone [phone] Care Team Providers Care Behavioral Specialist Name Role Phone JACY ARREAGA MD PP [phone] Summary purpose TRANSITION OF CARE AUTO GENERATION [...] tests and/or laboratory data RESULTS Radiology Results [id number]:23:00 Bilateral Screen Digital Mammo PACs Image DATE OF EXAM: Mar 17 2014 BRIAN 0845-BILAT SCREEN DIG MAMMO : RADIOLOGY REPORT DATE OF SERVICE:03/17/14 HISTORY: Screening for possible malignant neoplasm BILATERAL SCREENING DIGITAL MAMMOGRAPHY WITH iCAD SecondLook 7.2 - H+ 0745 HOURS No defined nodule, architectural distortion or malignant calcification is seen. IMPRESSION:ACR BIRADS I - negative study DO RAMEZ Briggs/emily 03/19/2014 16:14: / 03/19/2014 20:21:06 cc:Dr. Jacy Arreaga This document has been electronically Signed by: On: DATE OF EXAM: Mar 17 2014 BRIAN 0845-BILAT SCREEN DIG MAMMO : RADIOLOGY REPORT DATE OF SERVICE:03/17/14 HISTORY: Screening for possible malignant neoplasm BILATERAL SCREENING DIGITAL MAMMOGRAPHY WITH iCAD SecondLook 7.2 - H+ 0745 HOURS No defined nodule, architectural distortion or malignant calcification is seen. IMPRESSION:ACR BIRADS I - negative study DO Marlen Briggs 03/19/2014 16:14: / 03/19/2014 20:21:06 cc:Dr. Jacy Arreaga This document has been electronically Signed by: On: DATE OF EXAM: Mar 17 2014 BRIAN 0845-BILAT SCREEN DIG MAMMO : RADIOLOGY REPORT DATE OF SERVICE:03/17/14 HISTORY: Screening for possible malignant neoplasm BILATERAL SCREENING DIGITAL MAMMOGRAPHY WITH iCAD SecondLook 7.2 - H+ 0745 HOURS No defined nodule, architectural distortion or malignant calcification is seen. IMPRESSION:ACR BIRADS I - negative study Shabana Collins DO MW/pb 03/19/2014 16:14:00 / 03/19/2014 20:21:06 cc:Dr. Jacy Arreaga This document has been electronically Signed by: SHABANA COLLINS DO On: 20139:23A Result Amended on 2014-03-20 at 08:15:48. Previous status was CA. Result Amended on 2014-03-20 at 09:23:45. Previous status was CA. History of procedures Procedure Code Code Type Description Date Performed Performing Physician [id number] CPT-4 MAMMOGRAM, SCREENING 03-17-2014 JACY ARREAGA 65811 CPT-4 COMP SCREEN MAMMOGRAM ADD-ON 03-17-2014 JACY ARREAGA Functional status No functional or [...]
--- OUTSIDE RECORDS SUMMARY | 2018-05-13 07:34 | XMS REPORT | Clinical Summary ---
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 Unspecified essential hypertension TINEA CRURIS 110.3 Active Sharon Valdez WAX CUTTER Dermatophytosis of groin and perianal area SUPRAPUBIC PAIN 789.09 Active Sharon Valdez WAX CUTTER Abdominal pain, other specified site; multiple sites VAGINAL PRURITUS 698.1 Active Sharon Valdez APRN Pruritus of genital organs Dysuria Active Polina Nix MD Dysuria Interstitial Cystitis Active Polina Nix MD Chronic interstitial cystitis Kidney stone 592.0 Active 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 ESTRADIOL 00979054614 Active Polina Nix MD Active FLUCONAZOLE 100 MG ORAL TABLET 1 by mouth once a week. FLUCONAZOLE 36922264256 Active Polina Nix MD Active ALPRAZOLAM 0.25 MG ORAL TABLET Take 1 tablet TID as needed for anxiety 03/04 ALPRAZOLAM 14438802564 No Longer Active Polina Nix MD Active ADULT ASPIRIN EC LOW STRENGTH 81 MG ORAL TABLET DELAYED RELEASE Take 1 tablet daily ASPIRIN 17100629231 No Longer Active Polina Nix MD Active VISION FORMULA TABS 1 tablet daily MULTIPLE VITAMINS- MINERALS 29430294141 No Longer Active Polina Nix MD Active NYSTATIN 035003 UNIT/GM EXTERNAL POWDER Apply to affected areas BID-TID 03/04 NYSTATIN 18267564623 No Longer Active Polina Nix MD Active LEXAPRO 10 MG ORAL TABLET 1 tablet daily ESCITALOPRAM OXALATE 15786987349 No Longer Active Polina Nix MD Active LISINOPRIL 10 MG ORAL TABLET Take 1 tablet daily LISINOPRIL 14431256029 No Longer Active Polina Nix MD Active DIFLUCAN 100 MG ORAL TABLET 1 tablet by mouth daily FLUCONAZOLE 99356649262 No Longer Active Sharon Valdez APRN Active LISINOPRIL 10 MG ORAL TABLET Take 1 tablet daily LISINOPRIL 10 MG ORAL TABLET 338922 LISINOPRIL Inactive LEXAPRO 10 MG ORAL TABLET 1 tablet daily LEXAPRO 10 MG ORAL TABLET 145216 ESCITALOPRAM OXALATE Inactive NYSTATIN 590585 UNIT/GM EXTERNAL POWDER Apply to affected areas BID-TID 03/04 NYSTATIN 664411 UNIT/GM EXTERNAL POWDER 408845 NYSTATIN Inactive VISION FORMULA TABS 1 tablet daily VISION FORMULA TABS MULTIPLE VITAMINS-MINERALS Inactive ADULT ASPIRIN EC LOW STRENGTH 81 MG ORAL TABLET DELAYED RELEASE Take 1 tablet daily ADULT ASPIRIN EC LOW STRENGTH 81 MG ORAL TABLET DELAYED RELEASE 900481 ASPIRIN Inactive ALPRAZOLAM 0.25 MG ORAL TABLET Take 1 tablet TID as needed for anxiety 03/04 ALPRAZOLAM 0.25 MG ORAL TABLET 360143 ALPRAZOLAM Inactive DIFLUCAN 100 MG ORAL TABLET 1 tablet by mouth daily DIFLUCAN 100 MG ORAL TABLET 057369 FLUCONAZOLE Inactive Advance Directives Directive Description Start [...] negative Encounters Code Encounter Date Provider Facility CPT-35955 Level 3 Est. 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 Patient 16:08:46 CHOPPER FEEDER Polina Nix MD [facility] CPT-50513 Level 3 New Patient 23:35:59 CDT Polina Nix MD [facility] [place] CPT-89245 Level 3 Est. Patient 14:21:37 CDT Sharon Valdez APRN [facility] -[facility] [address] Procedures Code Procedure Name Date Entry Date Standard Description CPT-74373 Abdomen, 1 view 09:10:33 CHOPPER FEEDER CPT-43596 UA Auto Dip only - LAB USE ONLY 17:23:43 CDT
[2018-05-13] MEDS ORDERED: NS IV 500 ML 500 ML IV PRN (07:46)
[2018-05-13 07:53] VITALS: BP 140/90
[2018-05-13] MEDS ORDERED: MIDAZOLAM 2 MG/2 ML (VERSED) VIAL IVP ONE (08:00)
[2018-05-13] MEDS ORDERED: fentaNYL INJECTION 100 MCG/2 ML AMP IVP ONE (08:00)
[2018-05-13] MEDS ORDERED: fentaNYL INJECTION 100 MCG/2 ML AMP ONE (09:07)
[2018-05-13] MEDS ORDERED: MIDAZOLAM 2 MG/2 ML (VERSED) VIAL ONE ×4 (09:08)
--- NOTE | 2018-05-13 09:44 | History & Physicial ---
History of Present Illness History of Present Illness Reason for visit/HPI to undergo screening colonoscopy. No family history of polyps and colon cancer Date of Admission 05/13/18 Date Seen by a Provider: May 13, 2018 Time Seen by a Provider: 09:10 I consulted on this patient on 05/13/18 09:42 Attending Physician Santosh Claudio MD Admitting Physician No,Local Physician Consult Allergies and Home Medications Allergies Coded Allergies: No Known Drug Allergies (Unverified , 05/06/18) Home Medications Alprazolam 0.5 Mg Tablet, 0.25 MG PO BID PRN for ANXIETY, (Reported) Mth/Me Blue/Sod Phos/Phen/Hyos 1 Each Capsule, 1 EACH PO Q6H PRN for BLADDER PAIN, (Reported) Patient Home Medication List Home Medication List Reviewed: Yes Past Pborlzz-Mvxlyh-Ldbufs Hx Patient Social History Marrital Status: Employed/Student: employed Alcohol Use: Denies Use Recreational Drug Use: No Smoking Status: Never a Smoker Recent Foreign Travel: No Contact w/other who traveled: No Recent Hopitalizations: No Recent Infectious Disease Expo: No Immunizations Up To Date Tetanus Booster (TDap): Unknown Seasonal Allergies Seasonal Allergies: No Surgeries Yes Gallbladder, Hysterectomy, Tonsillectomy Respiratory No Currently Using CPAP: No Currently Using BIPAP: No Cardiovascular Yes Hypertension Neurological No Reproductive System Hx Reproductive Disorders: No Sexually Transmitted Disease: No HIV/AIDS: No Genitourinary UTI-Chronic HEENT Loss of Vision: Bilateral Hearing Impairment: Denies Psychosocial Behavioral Health Disorders: Anxiety Blood Transfusions Adverse Reaction to a Blood Tr: No (N/A) Review of Systems Constitutional: no symptoms reported EENTM: no symptoms reported Respiratory: no symptoms reported Cardiovascular: no symptoms reported Gastrointestinal: no symptoms reported Genitourinary: no symptoms reported Musculoskeletal: no symptoms reported Skin: no symptoms reported Psychiatric/Neurological: No Symptoms Reported Physical Exam Vital Signs Vital Signs - First Documented 05/13/18 07:53 Temp 97.6 Pulse 69 Resp 18 B/P (MAP) 140/90 (107) Pulse Ox 97 O2 Delivery Room Air Capillary Refill : Height, Weight, BMI Height: 5'9.00" Weight: 210lbs. 0.0oz. [id number]; 31.0 BMI Method: General Appearance: No Apparent Distress Neck: Normal Inspection Respiratory: Lungs Clear Cardiovascular: Regular Rate, Rhythm Gastrointestinal: Non Tender, Soft Rectal: Deferred Neurologic/Psychiatric: Alert, Oriented x3 Assessment/Plan Assessment and Plan lady to undergo screening colonoscopy. Discussed in detail. Admission Diagnosis Admission Status: Other (Outpt Proc) SANTOSH CLAUDIO MD May 13, 2018 09:43
--- NOTE | 2018-05-13 09:44 | Conscious Sedation/ASA ---
Conscious Sedation Pre-Proced Time 09:10 ASA Score 2 For ASA 3 and 4: Consider anesthesia and medical clearance. Also, for patients with a history of failed moderate sedation consider anesthesia. Airway Lungs Heart ASA score ASA 1: a normal healthy patient ASA 2: a patient with a mild systemic disease (mid diabetes, controlled hypertension, obesity ASA 3: a patient with a severe systemic disease that limits activity (angina , COPD, prior Myocardial infarction) ASA 4: a patient with an incapacitating disease that is a constant threat to life (CHF, renal failure) ASA 5: a moribund patient not expected to survive 24 hrs. (ruptured aneurysm) ASA 6: a declared brain patient whose organs are being harvested. For emergent operations, add the letter E after the classification Mallampati Classification Grade 1 Sedation Plan Discussed options with patient/fam The patient is an appropriate candidate to undergo the planned procedure, sedation, and anesthesia. The patient immediately re-assessed prior to indication. SANTOSH CLAUDIO MD May 13, 2018 09:44
--- NOTE | 2018-05-13 09:46 | Endo Procedure Record ---
Endo Procedure Report Date of Procedure Last Colonoscopy: No May 13, 2018 Surgeon (s) SANTOSH CLAUDIO MD Post Procedure/Op Diagnosis sigmoid diverticulosis Procedure Performed colonoscopy to cecum Description of Procedure Anesthesia Type: Conscious Sedation Specimen(s) collected/removed None Description of the Procedure indication for the procedure: This lady came in for screening colonoscopy. She denied any other 11 family history. Informed consent was obtained after reviewing the procedure in detail. Description of the procedure: She was placed in left lateral decubitus position and her vital signs were monitored. Conscious sedation was achieved using Versed and fentanyl. Digital rectal examination was unremarkable. The colonoscope was then introduced in the rectum and advanced to the cecum. Scope was then withdrawn slowly and the mucosa examined in a systematic fashion. Finding: Very few sigmoid diverticulae. No polyps were found. She tolerated the procedure well and was taken back to the nursing area in a stable condition. Impression: Screening colonoscopy. No polyps. Recommend repeating in 10 years. Copy Copies To 1: RIGO ANDREWS MD, XAVIER M MD May 13, 2018 09:46
--- NOTE | 2018-05-13 09:47 | Discharge Inst-Simple/Standard ---
Discharge Inst-Standard Discharge Medications New, Converted or Re-Newed RX: Other Patient Instructions/Follow Up Plan of Care/Instructions/FU: repeat colonoscopy in 10 years Activity as Tolerated: Yes Discharge Diet: No Restrictions SANTOSH CLAUDIO MD May 13, 2018 09:47
[2018-05-13 10:05] VITALS: BP 108/62
[2018-05-13 10:35] VITALS: BP 129/74
[2018-05-13 10:38] VITALS: BP 129/74
== END 2018-05-13 10:42 | disposition home or self-care (01) ==
LOC: ENDO 07:20
PROVIDERS: ATTEND Surgery
DX: Z12.11 Encounter for screening for malignant neoplasm of colon (principal); K57.30 Diverticulosis of large intestine without perforation or abscess without bleeding; I10 Essential (primary) hypertension; Z79.899 Other long term (current) drug therapy